=== PATIENT | female | born 1960 | race Hispanic/Latino ===

== ENCOUNTER 2019-05-09 09:46 | Observation (INO) | payer OTHER ==
--- OUTSIDE RECORDS SUMMARY | 2019-05-09 10:07 | XMS REPORT | Summary of Care ---
:1960 Author Organization [facility] Outpatient Imaging [place] Address [id number] [place] [address]- Encounter HQ Encntr_alias(FIN) [id number] Date(s): 03/02/16 - 03/02/16 [facility] Outpatient Imaging [address] Discharge Disposition: Home Attending Physician: Vernon Kimball MD Vital Signs No data available for this section Problem List No data available for this section Allergies, Adverse Reactions, Alerts No data available for this section Medications No data available for this section Results No data available for this section Immunizations No data available for this section Procedures No data available for this section Social History No data available for this section Assessment and Plan No data available for this section
--- OUTSIDE RECORDS SUMMARY | 2019-05-09 10:07 | XMS REPORT | Clinical Summary ---
:1960 Author Organization [facility] Address [address] [place] [address] Care Team Providers Name Role Phone Yousuf Renee MD Primary Care Provider Allergies No Known Allergies Medications Medication Sig Dispensed Refills Start Date End Date Status levothyroxine (SYNTHROID, Take 150 mcg by 0 Active LEVOXYL) 150 mcg tablet mouth daily. hydroxychloroquine Take 200 mg by 0 Active (PLAQUENIL) 200 mg tablet mouth 2 (two) times a day. topiramate (TOPAMAX) 50 Take 50 mg by 0 Active MG tablet mouth 2 (two) times a day. olmesartan (BENICAR) 40 Take 40 mg by 0 08/23/2017 Active MG tablet mouth once daily. carvedilol (COREG) 6.25 Take 6.25 mg by 0 Active MG tablet mouth daily. etodolac (LODINE) 500 MG Take 500 mg by 0 Active tablet mouth daily. leflunomide (ARAVA) 20 MG Take 20 mg by 0 09/01/2017 Active tablet mouth once daily. INFLIXIMAB (REMICADE IV) Infuse into a 0 Active venous catheter every 28 days. Active Problems Problem Noted Date Lumbar adjacent segment disease with spondylolisthesis 10/27/2017 Family History Medical History Relation Name Comments Cancer Father Heart disease Father Relation Name Status Comments Father bleeding disorder Mother lung disease Social History Tobacco Use Types Packs/Day Years Used Date Never Smoker Smokeless Tobacco: Never Used Alcohol Use Drinks/Week oz/Week Comments Yes 1 per month Sex Assigned at Date Recorded Not on file Job Start Date Occupation Industry Not on file Not on file Not on file Travel History Travel Start Travel End No recent travel history available. Last Filed Vital Signs Not on file Plan of Treatment Health Maintenance Due Date Last Done Comments BREAST CANCER SCREENING 2008 COLONOSCOPY SCREENING 2008 SHINGLES VACCINES (#1) 2008 INFLUENZA VACCINE 06/08/2019 Implants Implanted Type Area Subgrade Tester Device Shelf Model / Serial Identifier Expiration / Lot Date Chip Canc Allograft Leader Crshd 30cc 0.1-4mm - [id number] Human Posterio MUSCULOSKELETAL 05/14/2020 [id number] / Implanted: Qty: 1 on 10/27/2017 by Lawrence Alfonso MD Tissue r: Spine TRANSPLANT / Implants Lumbar F[employer]ATION [id number] Concelltrate 100 10.0cc - [id number] Human N/A: N/A 05/03/2022 [id number] / Implanted: Qty: 1 on 10/27/2017 by Lawrence Alfonso MD Tissue / Implants Concelltrate 100 5.0cc - [id number] Human Posterio 01/18/2022 [id number] / Implanted: Qty: 1 on 10/27/2017 by Lawrence Alfonso MD Tissue r: Spine / Implants Lumbar [id number] Niya 3 Ti Pa Screw Leticia 5.5 X 30 Mm - [id number] Posterio [employer] [id number] / Implanted: Qty: 1 on 10/27/2017 by Lawrence Alfonso MD IMPLANT r: Spine / DEVICES Lumbar VENDOR LOT NA Screw Spinal Plyaxl 6.5x45mm Niya Iii - [id number] Spinal Posterio [employer] [id number] / Implanted: Qty: 2 on 10/27/2017 by Lawrence Alfonso MD Implants r: Spine / Lumbar VENDOR LOT NA Ivan Spinal Rads 6x45mm Niya Iii - [id number] Spinal Posterio [employer] [id number] / Implanted: Qty: 2 on 10/27/2017 by Lawrence Alfonso MD Implants r: Spine / Lumbar VENDOR LOT NA Freedom Lmbr Thorc Niya 3 - [id number] Spinal Posterio [employer] [id number] / Implanted: Qty: 4 on 10/27/2017 by Lawrence Alfonso MD Implants r: Spine / Lumbar VENDOR LOT NA Screw Plyaxl Lmbr Thor 5.5x40mm Ns Niya 3 - [id number] Spinal Posterio [employer] [id number] / Implanted: Qty: 1 on 10/27/2017 by Lawrence Alfonso MD Implants r: Spine / Lumbar VENDOR LOT NA Connector Spinal Cross Mul-Ax Niya 3 43-54mm - [id number] Spinal Posterio [employer] [id number] / Implanted: 10/27/2017 (Quantity not on file) Implants r: Spine / Lumbar VENDOR LOT NA Matrix Hmstc Floseal 5ml W/ Humn F2 - [id number] Surgical N/A: N/A HAYNES 01/11/2019 [id number] / Implanted: Qty: 1 on 10/27/2017 by Lawrence Alfonso MD Implants; [employer] [facility] / Expanders; Extenders; Surgical Wires Results Not on fileafter 05/08/2018 ([place]) [place] [address] Advance Directives Patient has advance care planning documents, and code status on file. For more information, please contact:Lionel Lainez[address] [place] [address] Code Status Date Activated Date Inactivated Comments Full Code 10/27/2017 8:44 PM 10/30/2017 9:02 PM Code Status decision reached by: Patient
--- OUTSIDE RECORDS SUMMARY | 2019-05-09 10:07 | XMS REPORT | Summary of Care ---
:1960 Author Organization [facility] [place] Address [address] [facility] [address] [place] [address] Encounter HQ Rene(FIN) [id number] Date(s): 04/28/19 - 04/28/19 [facility] [address] [facility] [address] [place] [address]- [phone] Discharge Disposition: Home or Self Care Attending Physician: Evy Leach MD Vital Signs Most recent to oldest [Reference Range]: 1 Height 157.48 cm (04/28/19 9:02 AM) Blood Pressure [90-140/60-90 mmHg] 160/107 mmHg *HI* (04/28/19 9:02 AM) Peripheral Pulse Rate [60-100 bpm] 54 bpm *LOW* (04/28/19 9:02 AM) Weight 98.636 kg (04/28/19 9:02 AM) Body Mass Index 39.77 m2 (04/28/19 9:02 AM) Problem List Condition Effective Dates Status Health Status Informant Cardiac angina(Confirmed) Active Diastolic CHF(Confirmed) Active Family history of premature Active CAD(Confirmed) Uncontrolled hypertension(Confirmed) Active Morbid obesity(Confirmed) Active Preop cardiovascular exam(Confirmed) Active Allergies, Adverse Reactions, Alerts No Known Allergies Medications amLODIPine 5 mg oral tablet 5 mg=1 tab, PO, BID, # 180 tab, 4 Refill(s), Pharmacy: [facility]/pharmacy #[id number] Start Date: 04/28/19 Stop Date: 07/21/20 Status: OrderedamLODIPine 5 mg oral tablet 5 mg=1 tab, PO, Daily, 0 Refill(s) Start Date: 04/28/19 Stop Date: 04/28/19 Status: Discontinuedcarvedilol 12.5 mg oral tablet See Instructions, 1 tab Po qd, 0 Refill(s) Start Date: 04/28/19 Stop Date: 04/28/19 Status: Discontinuedcarvedilol 12.5 mg oral tablet 12.5 mg=1 tab, PO, BID, # 180 tab, 4 Refill(s), Pharmacy: [facility]/pharmacy #[id number] Start Date: 04/28/19 Stop Date: 07/21/20 Status: Orderedcarvedilol 6.25 mg oral tablet See Instructions, 1 tab PO, 0 Refill(s) Start Date: 04/28/19 Stop Date: 04/28/19 Status: Discontinuedlevothyroxine 150 mcg (0.15 mg) oral tablet 150 microgram=1 tab, PO, Daily, 0 Refill(s) Start Date: 04/28/19 Status: Orderedlosartan 100 mg oral tablet 100 mg=1 tab, PO, Daily, 0 Refill(s) Start Date: 04/28/19 Stop Date: 04/28/19 Status: Discontinuedolmesartan 40 mg oral tablet 40 mg=1 tab, PO, Daily, # 90 tab, 4 Refill(s), Pharmacy: [facility]/pharmacy #[id number] Start Date: 04/28/19 Stop Date: 07/21/20 Status: Orderedolmesartan 40 mg oral tablet 40 mg=1 tab, PO, Daily, 0 Refill(s) Start Date: 04/28/19 Stop Date: 04/28/19 Status: DiscontinuedRemicade 5 mg/kg, IV, 0 Refill(s) Start Date: 04/28/19 Status: Orderedtopiramate 50 mg oral tablet 50 mg=1 tab, PO, BID, # 60 tab, 1 Refill(s) Start Date: 04/28/19 Stop Date: 05/28/19 Status: Ordered Results No data available for this section Immunizations No data available for this section Procedures Procedure Date Related Diagnosis Body Site Status Hysterectomy Completed Social History Social History Type Response Smoking Status Never smoker; Exposure to Tobacco Smoke None; Cigarette Smoking Last 365 Days No; Reg Smoking Cessation Counseling No entered on: 04/28/19 Assessment and Plan No data available for this section
--- OUTSIDE RECORDS SUMMARY | 2019-05-09 10:07 | XMS REPORT | Summary of Care ---
:1960 Author Name DEMETRA STANLEY N.P. 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) Status: Active Malnutrition (263.9, E46) Status: Active Fatty liver (571.8, K76.0) Status: Active Medications Name Dates Details Medications not documented Allergies and Adverse Reactions Name Dates Details Allergy history not documented Status: Past Medical History Name Dates Details History of Malabsorption due to intolerance, not elsewhere classified (579.8, K90.49) Status: Resolved History of malnutrition (V12.1, Z86.39) Status: Resolved Procedures Procedure Dates Details [[facility]] VITAMIN A (RETINOL) Date: 06-Mar-2019 [[facility]] VITAMIN E (TOCOPHEROL) Date: 06-Mar-2019 Immunization Name Dates Details Immunizations not documented Social History Name Dates Details Unknown if ever smoked Vital Signs Date Test Result Details No Known Vitals to report Results Date Description Value Details 13-Feb-20199:33 US Liver 15258 Liver US SEE NOTES Comments: LIVER ULTRASOUND INDICATION: - K76.0 Fatty (change of) liver, not elsewhere classifiedTECHNIQUE: Grayscale and limited doppler images of the liver were obtained andrepresentative images were submit princess for interpretation.COMPARISON: noneFINDINGS:Liver: the liver measures 15 cm in length (normal: 13-17 cm). Echogenicity isincreased. No surface nodularity.Portal and hepatic veins are patent with nor mal directions of flow.Biliary: No gallstones, gallbladder wall thickening, or sonographic Ferguson'ssign. There is no biliary duct dilation. Mid common bile duct measures 4 mm indiameter.Pancreas: Promi nent head and appears echogenic. No focal lesion. However,certain portions are obscured by overlying bowel gas and unable to beevaluated.Vascular : Visualized portions of the IVC are patent. No obvious a neurysmaldilatation of the aorta.IMPRESSION:Prominent pancreatic head which appears echogenic. Findings maybe due to fattyinfiltration or inflammation. Recommend correlation with lipase levels. Alsoco nsider further evaluation with pancreatic protocol MR or CT.Hepatic echogenicity suggests fatty infiltration and/or chronic hepatocellulardisease.-- Read by: Jane Do MDDictated Date/time: 09:59Electronically Signed by: Jane Do MD 02/13/1910:04FINAL REPORT :59 GI Esophagus barium swallow 15320 Esophagus barium swallow SEE NOTES Comments: EXAM: Upper GI series w KUB DX , Barium swallow DXDATE: 02/13/2019 9:58 CDT.INDICATION: Nausea and reflux.COMPARISON: None available.TECHNIQUE: Upper GI was performed using double contrast technique orally .FLUOROSCOPY:Time: 0.4 min.Exposures: 0.FINDINGS:Preliminary radiograph: Posterior spinal fixation hardware projects over thelower lumbar spine. A moderate amount stool is incidentally noted.Swallowing: Normal. No penetration or aspiration was seen.Esophagus:Motility: Normal. There was normal passage of a barium-coated tablet beyond thegastroesophageal junction.Anatomy: No filling defects, mucosal irr egularities, obstructions or extrinsiccompressions identified.Hiatal hernia: None.Gastroesophageal reflux: Unprovoked gastroesophageal reflux extended as farproximal as the level of the karen.Stomach: Normal.Duodenum: Normal.IMPRESSION:Unprovoked gastroesophageal reflux is moderate in extent.--Read by: Devon Vo MDDictated Date/time: 06/26 15:46Electronically Signed by: Milad Vo MD 02/13/1915:49FINAL REPORT :58 GI Stomach UGI (barium) with KUB 33829 Stomach UGI (barium) with SEE NOTES Comments: EXAM: Upper GI series w KUB DX, Barium swallow DXDATE: 02/13/2019 9:58 CDT.INDICATION: Nausea and reflux.COMPARISON: None available.TECHNIQUE: Upper GI was performed using double contrast technique orally KUB .FLUOROSCOPY:Time: 0.4 min.Exposures: 0.FINDINGS:Preliminary radiograph: Posterior spinal fixation hardware projects over thelower lumbar spine. A moderate amount stool is incidentally noted.Swallowing: Normal. No penetration or aspiration was seen.Esophagus:Motility: Normal. There was normal passage of a barium-coated tablet beyond thegastroesophageal junction.Anatomy: No filling defects, mucosal irr egularities, obstructions or extrinsiccompressions identified.Hiatal hernia: None.Gastroesophageal reflux: Unprovoked gastroesophageal reflux extended as farproximal as the level of the karen.Stomach: Normal.Duodenum: Normal.IMPRESSION:Unprovoked gastroesophageal reflux is moderate in extent.--Read by: Devon Voictated Date/time: 06/26 15:46Electronically Signed by: Milad Vo MD 02/13/1915:49FINAL REPORT [[facility]] PTH, INTACT (WITHOUT CALCIUM) Parathyroid Hormone Intact 47.4 pg/ml Range: 18.4-80.1 [[facility]] AMYLASE Amylase Level 51 u/l Range: 25-115 [[facility]] FOLATE, SERUM Folate Level 9.7 ng/ml Range: >=3.0 [[facility]] LIPID PANEL LDL 66 mg/dl Range: <=99 VLDL 30 Chol 161 mg/dl Range: <=199 Trig 148 mg/dl Range: <=149 HDL Cholesterol 65 mg/dl Range: >=61 CHD Risk 2.48 (Below low threshold) Range: 3.90-5.80 [[facility]] IRON AND TOTAL IRON BINDING CAPACITY Iron 115 ug/dL Range: 30-160 % Satur Fe 30 % Range: 12-57 TIBC 385 ug/dL Range: 228-428 UIBC 270 ug/dL Range: 110-370 [[facility]] LIPASE Lipase Level 305 u/l Range: 73-393 [[facility]] TSH, 3RD GENERATION TSH 4.360 {uIU/ml} (Above high threshold) Range: 0.360-3.740 [[facility]] VITAMIN B12 Vitamin B12 Level 318 pg/ml Range: 254-1320 [[facility]] HEMOGLOBIN A1c Hemoglobin A1c 5.9 % (Above high threshold) Range: <=5.6 [[facility]] VITAMIN D, 25-HYDROXY, LC/MS/MS Vitamin D, 25-OH, 18.5 ng/ml (Below low Range: 30.0-100.0 Total threshold) Comments: Reference range is based on recommendations in the [employer]ocrineSociety Clinical Practice Guideline (J Clin Endocrinol Lmxwd0618;96 :9107-7860) [H] Vit A Vitamin A Level 45.6 ug/dL Range: 22.0-69.5 Comments: Reference intervals for vitamin A determined from [facility] studies. Individuals with vitamin A less than 20ug/dL are considered vitamin A deficient and those withserum concentrations less than 10 ug/dL are consideredseverely deficient.This test was developed and its performance characteristicsdetermined by [employer]. It has not been cleared orapproved by the Food and Drug Administration.Performed At: [facility] [id number] Smith MD Ph:[phone] [H] Vitamin E Lvl Alpha-Tocopherol 8.2 mg/L (Below low Range: 9.0-29.0 threshold) Comments: This test was developed and its performance characteristicsdetermined by [employer]. It has not been cleared orapproved by the Food and Drug Administration. Gamma-Tocopherol 1.2 mg/L Range: 0.5-4.9 Comments: This test was developed and its performance characteristicsdetermined by [facility]. It has not been cleared orapproved by the Food and Drug Administration.Reference intervals for alpha and gamma-tocophero ldetermined from National Health and Nutrition ExaminationSurvey, 2004- 2005. Individuals with alpha-tocopherol levelsless than 5.0 mg/L are considered vitamin E deficient.Performed At: [facility] [id number] [place], [place] [id number] Smith MD Ph: [phone] 14-Uag-[id number]:00 [[facility]] VITAMIN B1, WHOLE BLOOD Vitamin B1 Level 113.8 nmol/L Range: 66.5-200.0 Comments: This test was developed and its performance characteristicsdetermined by [facility]. It has not been cleared orapproved by the Food and Drug Administration.Performed At: [address] [id number] Sanjai MD Ph:[phone] Plan of Care Name Dates Details Planned Observations Planned Goals not documented Planned Encounters Appointment; DEMETRA STANLEY NP On: 27-Mar-2019 13:15 Instructions Name Dates Details Instructions not documented Encounters Appointment; LISA CONCEPCION M.D. On: 27-Jan-2019 10:30 Encounter Diagnosis: Problem not documented Appointment; DEMETRA STANLEY NP On: 06-Mar-2019 13:00 Encounter Diagnosis: Problem not documented
--- OUTSIDE RECORDS SUMMARY | 2019-05-09 10:07 | XMS REPORT | Summary of Care ---
:1960 Author Organization [facility] Outpatient Imaging [place] Address [id number] [place] [address]- Encounter HQ Encntr_alias(FIN) [id number] Date(s): 02/13/19 - 02/13/19 [facility] Outpatient Imaging [address] [address]- Discharge Disposition: Home or Self Care Attending Physician: Ramone Michel MD Referring Physician: Ramone Michel MD Vital Signs No data available for [...]
--- OUTSIDE RECORDS SUMMARY | 2019-05-09 10:07 | XMS REPORT | Continuity of Care Document ---
:1960 Author Organization [employer] Care Team Providers Name Role Phone [employer] Unavailable Unavailable Problems Problem Status Onset Classification Date Comments Source Date Reported M54.5 - LOW BACK Active 09/03/20 [facility] PAIN [facility] [place], [facility] [place] M06.09 - Active 03/02/20 [facility] RHEUMATOID [facility] [place] ARTHRITIS W/O RHEUM Cardiac angina Active Problem 04/30/2019 [facility] Diastolic CHF Active Problem 04/30/2019 [facility] Family history of Active Problem 04/30/2019 Medical premature CAD Group Uncontrolled Active Problem 04/30/2019 Medical hypertension Group Morbid obesity Active Problem 04/30/2019 Medical Group Preop Active Problem 04/30/2019 Medical cardiovascular Group exam Medications Medication Details Route Status Patient Ordering Order Source Instructions Provider Date amLODIPine 5 mg 5 mg=1 Active oral tablet tab, PO, 019 [facility] BID, # 180 Group tab, 4 Refill(s), [facility]acy: [id number] carvedilol 12.5 12.5 mg=1 Active MH mg oral tablet tab, PO, 019 Medical BID, # 180 Group tab, 4 Refill(s), [facility]: [id number] olmesartan 40 mg 40 mg=1 Active oral tablet tab, PO, 019 Medical Daily, # Group 90 tab, 4 Refill(s), Pharmacy: [id number] Remicade 5 mg/kg, Active IV, 0 019 Medical Refill(s) Group olmesartan 40 mg 40 mg=1 Inactive oral tablet tab, PO, 019 Medical Daily, 0 Group Refill(s) carvedilol 12.5 See Inactive mg oral tablet Instructio 019 Medical ns, 1 tab Group Po qd, 0 Refill(s) losartan 100 mg 100 mg=1 Inactive oral tablet tab, PO, 019 Medical Daily, 0 Group Refill(s) amLODIPine 5 mg 5 mg=1 Inactive oral tablet tab, PO, 019 Medical Daily, 0 Group Refill(s) levothyroxine 150 Active 150 mcg (0.15 microgram= 019 Medical mg) oral tablet 1 tab, PO, Group Daily, 0 Refill(s) carvedilol 6.25 See Inactive MH mg oral tablet Instructio 019 Medical ns, 1 tab Group PO, 0 Refill(s) topiramate 50 mg 50 mg=1 Active oral tablet tab, PO, 019 Medical BID, # 60 Group tab, 1 Refill(s) Allergies, Adverse Reactions, Alerts No Known Medication Allergies Immunizations No Data Provided for This Section Results No Data Provided for This Section Pathology Reports No Data Provided for This Section Diagnostic Reports Report Value Date Source Barium swallow DX EXAM: Upper GI series w KUB DX, Barium swallow DX 2018 [facility] DATE: 02/13/2019 9:58 CDT. INDICATION: Nausea and reflux. COMPARISON: None available. TECHNIQUE: Upper GI was performed using double contrast technique orally. FLUOROSCOPY: Time: 0.4 min. Exposures: 0. FINDINGS: Preliminary radiograph: Posterior spinal fixation hardware projects over the lower lumbar spine. A moderate amount stool is incidentally noted. Swallowing: Normal. No penetration or aspiration was seen. Esophagus: Motility: Normal. There was normal passage of a barium-coated tablet beyond the gastroesophageal junction. Anatomy: No filling defects, mucosal irregularities, obstructions or extrinsic compressions identified. Hiatal hernia: None. Gastroesophageal reflux: Unprovoked gastroesophageal reflux extended as far proximal as the level of the karen. Stomach: Normal. Duodenum: Normal. IMPRESSION: Unprovoked gastroesophageal reflux is moderate in extent. Upper GI series w EXAM: Upper GI series w KUB DX, Barium swallow DX 2018 [facility] [place] KUB DX DATE: 02/13/2019 9:58 CDT. INDICATION: Nausea and reflux. COMPARISON: None available. TECHNIQUE: Upper GI was performed using double contrast technique orally. FLUOROSCOPY: Time: 0.4 min. Exposures: 0. FINDINGS: Preliminary radiograph: Posterior spinal fixation hardware projects over the lower lumbar spine. A moderate amount stool is incidentally noted. Swallowing: Normal. No penetration or aspiration was seen. Esophagus: Motility: Normal. There was normal passage of a barium-coated tablet beyond the gastroesophageal junction. Anatomy: No filling defects, mucosal irregularities, obstructions or extrinsic compressions identified. Hiatal hernia: None. Gastroesophageal reflux: Unprovoked gastroesophageal reflux extended as far proximal as the level of the karen. Stomach: Normal. Duodenum: Normal. IMPRESSION: Unprovoked gastroesophageal reflux is moderate in extent. Liver US LIVER ULTRASOUND 02/13/2019 [facility] INDICATION: - K76.0 Fatty (change of) liver, not elsewhere classified TECHNIQUE: Grayscale and limited doppler images of the liver were obtained and client account representative images were submitted for interpretation. COMPARISON: none FINDINGS: Liver: the liver measures 15 cm in length (normal: 13-17 cm). Echogenicity is increased. No surface nodularity. Portal and hepatic veins are patent with normal directions of flow. Biliary: No gallstones, gallbladder wall thickening, or sonographic Ferguson's sign. There is no biliary duct dilation. Mid common bile duct measures 4 mm in diameter. Pancreas: Prominent head and appears echogenic. No focal lesion. However, certain portions are obscured by overlying bowel gas and unable to be evaluated. Vascular: Visualized portions of the IVC are patent. No obvious aneurysmal dilatation of the aorta. IMPRESSION: Prominent pancreatic head which appears echogenic. Findings maybe due to fatty infiltration or inflammation. Recommend correlation with lipase levels. Also consider further evaluation with pancreatic protocol MR or CT. Hepatic echogenicity suggests fatty infiltration and/or chronic hepatocellular disease. Ankle 3 views DX Examination: Ankle 3 views DX 03/02/2016 [facility] [employer] Provided History: M06.09 Rheumatoid arthritis without rheumatoid factor, multiple sites IMPRESSION: No acute fracture or subluxation DISCUSSION: 3 views right ankle demonstrate mild soft tissue swelling but no evidence of an acute fracture or subluxation. The osseous elements are intact. Knee 3 views DX Examination: Knee 3 views DX 03/02/2016 [facility] Provided History: M06.09 Rheumatoid arthritis without rheumatoid factor, multiple sites IMPRESSION: 1. No acute fracture or effusion 2. Minimal degenerative changes. DISCUSSION: 3 views right knee demonstrate no evidence of an acute fracture or subluxation. The patella appears intact with minimal spurring along the superior margin. The tibial spines show minimal degenerative spurring. Consultation Notes No Data Provided for This Section Discharge Summaries No Data Provided for This Section History and Physicals No Data Provided for This Section Vital Signs Vital Sign Value Date Comments Source Height 157.48 cm 04/28/2019 [facility] BMI Calculated 39.77 04/28/2019 [facility] Weight 98.636 04/28/2019 [facility] Group Heart Rate 54 04/28/2019 [facility] Systolic (mm Hg) 160 04/28/2019 [facility] Diastolic (mm Hg) 107 04/28/2019 [facility] Group Encounters Location Location Encounter Encounter Reason Attending ADM DC Status Source Details Type Number For Provider Date Date Visit [facility] Outpt Diag [id number] [place] 03/02 03/03 [facility] [place] [place] [facility] Outpt Diag [id number] Kulvinder 02/13 02/14 [facility] [place] Outpatient [id number] Maj[place] 04/28 [facility] [place] [facility] Outpatient [id number] Majid 04/28 04/29 [facility] [place] [facility] Outpatient [id number] Majid 06/05 [facility] [place] Procedures Procedure Code Date Perfomer Comments Source Hysterectomy [id number] [facility] Assessment and Plan No Data Provided for This Section Plan of Care No Data Provided for This Section Social History Social History Date Source Social History TypeResponse 04/28/2019 [facility] Group Smoking Status Never smoker; Exposure to Tobacco Smoke None; Cigarette Smoking Last 365 Days No; Reg Smoking Cessation Counseling No entered on: 04/28/19 No data available for this 02/14/2019 [facility] [place] section Family History No Data Provided for This Section Advance Directives No Data Provided for This Section Functional Status No Data Provided for This Section
[2019-05-09 10:48] LABS: Absolute Lymphocytes (CBC) 1.4 K/uL (0.7-4.9); Basophils % 0.6 % (0-1.3); Eosinophils % 1.9 % (0-4.4); Lymphocytes % 12.9 % (15.3-44.8); MPV 10.2 fL (7.6-11.3); Monocytes % 8.1 % (3.3-12.3); RBC Red Blood Cell Count 5.05 M/uL (3.86-4.86)
[2019-05-09 10:49] LABS: Protime INR 0.96
--- NOTE | 2019-05-09 10:50 | RAD REPORT ---
EXAM DESCRIPTION: RAD - Chest Single View - 05/09/2019 10:38 am CLINICAL HISTORY: CHEST PAIN Chest pain. COMPARISON: Chest Pa And Lat (2 Views) dated 10/01/2018; Chest Pa And Lat (2 Views) dated 10/18/2017 ; CHEST PA AND LAT 2 VIEW dated 11/17/2012; CHEST SINGLE VIEW dated 11/16/2012 FINDINGS: Portable technique limits examination quality. The lungs are grossly clear. The heart is normal in size. No displaced fractures. IMPRESSION: No acute intrathoracic process suspected.
--- NOTE | 2019-05-09 10:55 | EKG ---
Test Date: 2019-05-09 Test Time: 09:58:09 [facility] [employer] Administrator: EUGENE MEASUREMENT RESULTS: Intervals: Rate: 63 AK: 160 QRSD: 88 QT: 390 QTc: 399 [place]: P: 40 AK: 160 QRS: 6 T: 50 INTERPRETIVE STATEMENTS: Normal sinus rhythm Cannot rule out Anterior infarct, age undetermined Abnormal ECG Compared to ECG 10/18/2017 11:21:02 Myocardial infarct finding now present T-wave abnormality no longer present Electronically Signed On 05-09-19 10:54:27 CDT by Jesus Mendenhall
[2019-05-09] MEDS ORDERED: ASPIRIN 81 MG CHEWABLE TABLET ONE (11:05)
[2019-05-09 11:12] LABS: ALT/SGPT 27 U/L (12-78); AST/SGOT 16 U/L (15-37); BUN Blood Urea Nitrogen 17 mg/dL (7-18); Bicarbonate 25 mmol/L (21-32); Bilirubin Direct 0.3 mg/dL (0-0.2); Bilirubin Total 1.6 mg/dL (0.2-1.0); Glucose Level 121 mg/dL (74-106); NT PRO-BNP 39 pg/mL (<125); Potassium 3.9 mmol/L (3.5-5.1); Protein, Total 7.5 g/dL (6.4-8.2); Sodium Level 140 mmol/L (136-145); Troponin (Emerg Dept Use Only) < 0.02 ng/mL (0.0-0.045)
[2019-05-09 11:16] LABS: Alkaline Phosphatase ND U/L (45-117)
--- NOTE | 2019-05-09 12:32 | RAD REPORT ---
EXAM DESCRIPTION: US - Abdomen Exam Limited - 05/09/2019 11:59 am CLINICAL HISTORY: epigastric discomfort. vomiting COMPARISON: ABDOMINAL EXAM LIMITED dated 11/18/2012 FINDINGS: The gallbladder demonstrates no gallstones. No pericholecystic fluid or gallbladder wall t hickening. The common bile duct is normal measuring 3 mm. The liver demonstrates no findings of intrahepatic biliary dilatation. IMPRESSION: Unremarkable examination.
--- NOTE | 2019-05-09 12:54 | EDPHYS ---
Physician Documentation [facility] Name: Loren Christianson Age: 58 yrs Sex: Female : 1960 Arrival Date: 05/09/2019 Time: 09:48 Bed 23 Private MD: Yousuf Renee V ED Physician Estiven Todd HPI: 05/09 12:42 This 58 yrs old Female presents to ER via Ambulatory with complaints of Chest wa Pain, Shortness Of Breath. 12:42 The patient or guardian reports chest pain that is located primarily in the substernal wa area. Onset: just prior to arrival. The pain does not radiate. Associated signs and symptoms: Pertinent positives: diaphoresis, dizziness, lightheadedness, nausea, shortness of breath, vomiting, Pertinent negatives: abdominal pain. The chest pain is described as a pressure. Duration: The patient or guardian reports a single episode, that lasted 10 minute(s). Modifying factors: The symptoms are alleviated by nothing. the symptoms are aggravated by nothing. Severity of pain: At its worst the pain was moderate in the emergency department the pain has improved markedly. The patient has not experienced similar symptoms in the past. The patient has not recently seen a physician. states was chatting with her sister and became acutely SOB, chest tightness, dizziness, clammy, nausea with 2 episodes of vomiting. states lasted until EMS arrived but at the time felt better so called them off. denies symptoms at his time except feels extremely tired. denies similar symptoms int he past. Historical: - Allergies: 10:03 No Known Allergies; aj - Home Meds: 10:03 carvedilol 12.5 mg oral tab 1 tab 2 times per day [Active]; vitammin D 2 50,000 unit aj capsule Twice per week [Active]; etodolac 500 mg Oral Tb24 1 tab once daily [Active]; losartan 100 mg oral tab 1 tab once daily [Active]; topiramate 50 mg oral CSpX 2 caps once daily [Active]; levothyroxine 150 mcg tab 1 tab once daily [Active]; olmesartan medoxomil 40 mg daily [Active]; hydroxychloroquine 200 mg oral tab 2 tabs once daily [Active]; amlodipine 5 mg tab 1 tab once daily [Active]; - PMHx: 10:03 Hypertension; Hypothyroidism; aj 10:03 Arthritis; aj - Immunization history:: Adult Immunizations up to date. - Social history:: Smoking status: Patient/guardian denies using tobacco. - Ebola Screening: : Patient negative for fever greater than or equal to 101.5 degrees Fahrenheit, and additional compatible Ebola Virus Disease symptoms Patient denies exposure to infectious person Patient denies travel to an Ebola-affected area in the 21 days before illness onset No symptoms or risks identified at this time. - Family history:: not pertinent. ROS: 12:45 Constitutional: Negative for fever, chills, and weight loss, Eyes: Negative for injury, wa pain, redness, and discharge, ENT: Negative for injury, pain, and discharge, Neck: Negative for injury, pain, and swelling, Abdomen/GI: Negative for abdominal pain, nausea, vomiting, diarrhea, and constipation, Back: Negative for injury and pain, : Negative for injury, bleeding, discharge, and swelling, MS/Extremity: Negative for injury and deformity, Skin: Negative for injury, rash, and discoloration, Neuro: Negative for headache, weakness, numbness, tingling, and seizure, Psych: Negative for depression, anxiety, suicide ideation, homicidal ideation, and hallucinations. 12:45 Cardiovascular: Positive for chest pain, Negative for edema, orthopnea, palpitations, paroxysmal nocturnal dyspnea. 12:45 Respiratory: Positive for shortness of breath, Negative for cough, hemoptysis, orthopnea. 12:45 All other systems are negative. Exam: 12:46 Constitutional: This is a well developed, well nourished patient who is awake, alert, wa and in no acute distress. Head/Face: Normocephalic, atraumatic. Eyes: Pupils equal round and reactive to light, extra-ocular motions intact. Lids and lashes normal. Conjunctiva and sclera are non-icteric and not injected. Cornea within normal limits. Periorbital areas with no swelling, redness, or edema. ENT: Nares patent. No nasal discharge, no septal abnormalities noted. Tympanic membranes are normal and external auditory canals are clear. Oropharynx with no redness, swelling, or masses, exudates, or evidence of obstruction, uvula midline. Mucous membranes moist. Neck: Trachea midline, no thyromegaly or masses palpated, and no cervical lymphadenopathy. Supple, full range of motion without nuchal rigidity, or vertebral point tenderness. No Meningismus. Chest/axilla: Normal chest wall appearance and motion. Nontender with no deformity. No lesions are appreciated. Abdomen/GI: Soft, non-tender, with normal bowel sounds. No distension or tympany. No guarding or rebound. No evidence of tenderness throughout. Back: No spinal tenderness. No costovertebral tenderness. Full range of motion. Skin: Warm, dry with normal turgor. Normal color with no rashes, no lesions, and no evidence of cellulitis. MS/ Extremity: Pulses equal, no cyanosis. Neurovascular intact. Full, normal range of motion. Neuro: Awake and alert, GCS 15, oriented to person, place, time, and situation. Cranial nerves II-XII grossly intact. Motor strength 5/5 in all extremities. Sensory grossly intact. Cerebellar exam normal. Normal gait. Psych: Awake, alert, with orientation to person, place and time. Behavior, mood, and affect are within normal limits. 12:46 Cardiovascular: Rate: normal, Rhythm: regular, Pulses: no pulse deficits are appreciated, Heart sounds: normal, Edema: is not appreciated, JVD: is not appreciated. 12:46 Respiratory: the patient does not display signs of respiratory distress, Respirations: normal, Breath sounds: are clear throughout, Respiratory rate: nml Vital Signs: 10:09 BP 122 / 77; Pulse 64; Resp 19; Temp 98.4; Pulse Ox 94% on R/A; Weight 90.72 kg; Height aj 5 ft. 2 in. (157.48 cm); 11:28 BP 120 / 80; Pulse 63; Resp 16; Pulse Ox 96% on R/A; aj 12:35 BP 116 / 79; Pulse 63; Resp 19; Pulse Ox 99% on R/A; aj 13:55 BP 154 / 90; Pulse 62; Resp 16; Pulse Ox 100% on R/A; aj 14:49 BP 126 / 73; Pulse 64; Resp 17; Pulse Ox 97% on R/A; aj 10:09 Body Mass Index 36.58 (90.72 kg, 157.48 cm) aj MDM: 09:55 Patient medically screened. wa 12:47 Differential diagnosis: symptoms very concerning for angina. needs r/o ACS. will work wa up. admit and have eval by cardiology. ASA. consider lovenox. Data reviewed: vital signs, nurses notes, lab test result(s), EKG, radiologic studies. Test interpretation: by ED physician or midlevel provider: EKG: HR 63. sinus. nml axis. low voltage. diffuse ST-T changes, non-specific. 12:50 Test interpretation: by ED physician or midlevel provider: labs noted for T. bili of wa 1.6. initial troponin nml. CXR nml. RUQ US: nml gallbladder. Special discussion: 1300 hrs: no chest pain at this time. will give a dose of lovenox. will admit to Dr. renee. consult cardiology Dr. Mendenhall. 05/09 10:13 Order name: Basic Metabolic Panel; Complete Time: 11:35 05/09 10:13 Order name: CBC with Diff; Complete Time: 11:36 05/09 10:13 Order name: LFT's; Complete Time: 11:36 05/09 10:13 Order name: Magnesium; Complete Time: 11:36 05/09 10:13 Order name: NT PRO-BNP; Complete Time: 11:36 05/09 10:13 Order name: PT-INR; Complete Time: 11:36 05/09 10:13 Order name: Troponin (emerg Dept Use Only); Complete Time: 11:36 05/09 10:13 Order name: XRAY Chest (1 view); Complete Time: 10:52 05/09 11:37 Order name: US Abdomen Limited; Complete Time: 12:35 [place] 05/09 12:54 Order name: Troponin (emerg Dept Use Only) 05/09 13:02 Order name: Troponin I [facility] 05/09 13:02 Order name: Troponin I [facility] 05/09 10:13 Order name: EKG; Complete Time: 10:15 05/09 10:13 Order name: Cardiac monitoring; Complete Time: 10:13 05/09 10:13 Order name: EKG - Nurse/Tech; Complete Time: 10:13 05/09 10:13 Order name: IV Saline Lock; Complete Time: 10:47 05/09 10:13 Order name: Labs collected and sent; Complete Time: 10:47 07/02 10:13 Order name: O2 Per Protocol; Complete Time: 10:13 05/09 10:13 Order name: O2 Sat Monitoring; Complete Time: 10:13 05/09 13:02 Order name: CONS Physician Consult [facility] 05/09 13:02 Order name: Consistent Carb (ADA) [address] [facility] 05/09 13:02 Order name: EKG Electrocardiogram [facility] 05/09 13:02 Order name: EKG Electrocardiogram [facility] 05/09 13:50 Order name: EKG - Nurse/Tech: repeat; Complete Time: 14:15 mg2 Administered Medications: 10:50 Drug: Aspirin Chewable Tablet 324 mg Route: PO; aj 11:28 Follow up: Response: No adverse reaction aj 12:56 Drug: Lovenox 90 mg Route: Sub-Q; Site: right upper abdomen; aj 13:50 Follow up: Response: No adverse reaction mg2 13:55 Drug: Zofran 4 mg Route: IVP; Site: right antecubital; aj 14:15 Follow up: Response: Marked relief of symptoms; Nausea is decreased aj Disposition: 05/09/19 12:53 Hospitalization ordered by Yousuf Renee for Observation. Preliminary diagnosis are chest pain, unstable angina. - Bed requested for Telemetry/MedSurg (observation). - Status is Observation. aj - Condition is Stable. - Problem is new. - Symptoms have improved. UTI on Admission? No Signatures: Dispatcher [employer] Leela Bentley RN RN Taiwo Ramírez em1 Estiven Todd MD MD wa [place], Michele, RN RN mg2 Corrections: (The following items were deleted from the chart) 15:36 12:53 Hospitalization Ordered by Yousuf Renee MD for Observation. Preliminary diagnosis em1 is chest pain; unstable angina. Bed requested for Telemetry/MedSurg (observation). Status is Observation. Condition is Stable. Problem is new. Symptoms have improved. UTI on Admission? No. wa 16:09 15:36 05/09/2019 12:53 Hospitalization Ordered by Yousuf Renee MD for Observation. aj Preliminary diagnosis is chest pain; unstable angina. Bed requested for Telemetry/MedSurg (observation). Status is Observation. Condition is Stable. Problem is new. Symptoms have improved. UTI on Admission? No. em1
--- NOTE | 2019-05-09 12:54 | ER ---
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 Patient reports vomiting x 2 episodes. Reports chest pain started after N/V SOB. Transition of care: patient was not received from another setting of care. Onset of symptoms was May 09, 2019. Risk Assessment: Do you want to hurt yourself or someone else? Patient reports no desire to harm self or others. Initial Sepsis Screen: Does the patient meet any 2 criteria? No. Patient's initial sepsis screen is negative. Does the patient have a suspected source of infection? No. Patient's initial sepsis screen is negative. Care prior to arrival: None. 10:09 Method Of Arrival: Ambulatory aj 10:09 Acuity: GLORIA 2 aj 10:10 Method Of Arrival: Ambulatory sg 10:11 Acuity: GLORIA 2 sg Triage Assessment: 10:09 General: Appears in no apparent distress. comfortable, obese, Behavior is calm, aj cooperative, appropriate for age. Pain: Complains of pain in chest. Neuro: Level of Consciousness is awake, alert, obeys commands, Oriented to person, place, time, situation, Appropriate for age. Cardiovascular: Reports chest pain, diaphoresis, nausea, shortness of breath, Capillary refill < 3 seconds in bilateral fingers Patient's skin is warm and dry. Rhythm is regular. Respiratory: Airway is patent Respiratory effort is even, unlabored, Respiratory pattern is regular, symmetrical. Derm: Skin is intact, is healthy with good turgor, Skin is pink, warm \T\ dry. normal. Historical: - Allergies: 10:03 No Known Allergies; aj - Home Meds: 10:03 carvedilol 12.5 mg oral tab 1 tab 2 times per day [Active]; vitammin D 2 50,000 unit aj capsule Twice per week [Active]; etodolac 500 mg Oral Tb24 1 tab once daily [Active]; losartan 100 mg oral tab 1 tab once daily [Active]; topiramate 50 mg oral CSpX 2 caps once daily [Active]; levothyroxine 150 mcg tab 1 tab once daily [Active]; olmesartan medoxomil 40 mg daily [Active]; hydroxychloroquine 200 mg oral tab 2 tabs once daily [Active]; amlodipine 5 mg tab 1 tab once daily [Active]; - PMHx: 10:03 Hypertension; Hypothyroidism; aj 10:03 Arthritis; aj - Immunization history:: Adult Immunizations up to date. - Social history:: Smoking status: Patient/guardian denies using tobacco. - Ebola Screening: : Patient negative for fever greater than or equal to 101.5 degrees Fahrenheit, and additional compatible Ebola Virus Disease symptoms Patient denies exposure to infectious person Patient denies travel to an Ebola-affected area in the 21 days before illness onset No symptoms or risks identified at this time. - Family history:: not pertinent. Screenin:47 Abuse screen: Denies threats or abuse. Denies injuries from another. Nutritional aj screening: No deficits noted. Tuberculosis screening: No symptoms or risk factors identified. Fall Risk None identified. Assessment: 10:47 Reassessment: Patient appears in no apparent distress at this time. No changes from aj previously documented assessment. Patient and/or family updated on plan of care and expected duration. Pain level reassessed. Patient is alert, oriented x 3, equal unlabored respirations, skin warm/dry/pink. 12:34 Reassessment: Patient appears in no apparent distress at this time. No changes from aj previously documented assessment. Patient and/or family updated on plan of care and expected duration. Pain level reassessed. Patient is alert, oriented x 3, equal unlabored respirations, skin warm/dry/pink. Family at bedside. 13:56 Reassessment: Patient reports nausea with SOB that has gotten worse suddenly. Dr deangelo Pathak gave order to Zofran and repeat EKG ordered. General: Appears in no apparent distress. uncomfortable, Behavior is calm, cooperative, appropriate for age. Pain: Denies pain. Neuro: Level of Consciousness is awake, alert, obeys commands, Oriented to person, place, time, situation, Appropriate for age. Cardiovascular: Reports nausea, shortness of breath, Capillary refill < 3 seconds in bilateral fingers Patient's skin is warm and dry. Rhythm is regular. Derm: Skin is intact, is healthy with good turgor, Skin is pink, warm \T\ dry. normal. 13:56 Respiratory: Reports shortness of breath at rest Airway is patent Respiratory effort is aj even, unlabored, Respiratory pattern is regular, symmetrical. 14:48 Reassessment: Patient placed on Life Pack per Dr Todd on monitor mode with pads in aj place. Vital Signs: 10:09 BP 122 / 77; Pulse 64; Resp 19; Temp 98.4; Pulse Ox 94% on R/A; Weight 90.72 kg; Height aj 5 ft. 2 in. (157.48 cm); 11:28 BP 120 / 80; Pulse 63; Resp 16; Pulse Ox 96% on R/A; aj 12:35 BP 116 / 79; Pulse 63; Resp 19; Pulse Ox 99% on R/A; aj 13:55 BP 154 / 90; Pulse 62; Resp 16; Pulse Ox 100% on R/A; aj 14:49 BP 126 / 73; Pulse 64; Resp 17; Pulse Ox 97% on R/A; aj 10:09 Body Mass Index 36.58 (90.72 kg, 157.48 cm) aj ED Course: 09:48 Patient arrived in ED. mr 09:48 Yousuf Renee MD is Private Physician. mr 09:55 Estiven Todd MD is Attending Physician. wa 09:57 Leela Foreman, RN is Primary Nurse. aj 10:01 EKG done, by test lab technician. reviewed by Estiven Todd MD. sm3 10:09 EKG completed in triage. Results shown to MD. aj 10:10 Triage completed. aj 10:11 Arm band placed on. sg 10:15 Inserted saline lock: 20 gauge in right antecubital area, using aseptic technique. aj Blood collected. Patient maintains SpO2 saturation greater than 95% on room air. 10:36 X-ray completed. Portable x-ray completed in exam room. Patient tolerated procedure jb2 well. 10:39 XRAY Chest (1 view) In Process Unspecified. EDMS 11:54 US Abdomen Limited In Process Unspecified. EDMS 12:52 Yousuf Renee MD is Hospitalizing Provider. wa 13:24 Repeat lab(s) drawn. by ks, sent to lab. 3 13:29 Troponin (emerg Dept Use Only) Sent. jp3 14:14 EKG done, by test lab technician. reviewed by Estiven Todd MD. at1 Administered Medications: 10:50 Drug: Aspirin Chewable Tablet 324 mg Route: PO; aj 11:28 Follow up: Response: No adverse reaction aj 12:56 Drug: Lovenox 90 mg Route: Sub-Q; Site: right upper abdomen; aj 13:50 Follow up: Response: No adverse reaction mg2 13:55 Drug: Zofran 4 mg Route: IVP; Site: right antecubital; aj 14:15 Follow up: Response: Marked relief of symptoms; Nausea is decreased aj Outcome: 12:53 Decision to Hospitalize by Provider. wa 16:09 Patient left the ED. aj Signatures: Dispatcher [employer] EDMS Jesus Lane RN RN sg Myers, Amanda RN Katherine Appiah mr Rogers Cameron jb2 Leela Whitfield, striper machine EKG Tat1 Estiven Todd MD MD wa Gardose, Michele, RN RN [facility] [place] Danette Fierro 3 Weston Villatoro jp3 Corrections: (The following items were deleted from the chart) 10:11 10:10 Presenting complaint: Patient states: Chest pain that began this morning, reports sg nausea and feeling dizzy, denies fever/vomiting/chills at this time 10:11 10:10 Transition of care: patient was not received from another setting of care. [facility] 10:11 10:10 Onset of symptoms was May 09, 2019 [facility] 10:11 10:10 Risk Assessment: Do you want to hurt yourself or someone else? Patient reports no sg desire to harm self or others. 10:11 10:10 Initial Sepsis Screen: Does the patient meet any 2 criteria? No. Patient's sg initial sepsis screen is negative. Does the patient have a suspected source of infection? No. Patient's initial sepsis screen is negative. 10: 10:10 Care prior to arrival: None. [facility] 10: 10:10 Acuity: GLORIA 3 sg sg
[2019-05-09] MEDS ORDERED: ENOXAPARIN 100 MG/ML SYR SQ ONE (13:09)
[2019-05-09] MEDS ORDERED: ONDANSETRON 4 MG/2 ML VIAL ONE (14:05)
--- NOTE | 2019-05-09 20:59 | P.HP ---
Certification for Inpatient Patient admitted to: Observation With expected LOS: <2 Midnights Practitioner: I am a practitioner with admitting privileges, knowledge of patient current condition, hospital course, and medical plan of care. Services: Services provided to patient in accordance with Admission requirements found in Title 42 Section 412.3 of the Code of Federal Regulations Patient History Date of Service: 05/09/19 Reason for admission: CHEST PAIN AND DIAPHORESIS TODAY History of Present Illness: MS. ACOSTA IS A MENOPAUSAL, NON SMOKER, NON DIABETIC WOMAN WHO HAS BEEN MORE FATIUED LATELY AND COMES WITH SUDDEN DIAPHORESIS AND SOME CHEST HEAVINESS HAPPENED TWICE TODAY ONCE AT HOME AND ONCE IN ER. NOW SHE IS SYMPTOMFREE ON THE FLOOR. Allergies No Known Allergies Allergy (Verified 05/09/19 17:09) Home Medications: Amlodipine [Norvasc] 5 mg PO DAILY 05/09/19 Carvedilol [Coreg] 6.25 mg PO BIDAC 05/09/19 Carvedilol [Coreg] 12.5 mg PO BIDAC 05/09/19 Ergocalciferol (Vitamin D2) [Vitamin D2] 50,000 unit PO SEECOM 05/09/19 Etodolac [Lodine Xl] 500 mg PO DAILY 05/09/19 Hydroxychloroquine [Plaquenil] 400 mg PO DAILY 05/09/19 Levothyroxine Sodium [Synthroid] 150 mcg PO 0600 05/09/19 Losartan Potassium [Cozaar] 100 mg PO DAILY 05/09/19 Olmesartan Medoxomil [Benicar] 40 mg PO DAILY 05/09/19 Topiramate 50 mg PO BID 05/09/19 - Past Medical/Surgical History Has patient received pneumonia vaccine in the past: No Diabetic: No -: HTN -: Hypothyroidism -: Rheumatoid Arthritis -: Back surgery - Nuts and bolts to the L4 & L5 - Social History Smoking Status: Never smoker Alcohol use: Yes CD- Drugs: No Caffeine use: Yes Place of Residence: Home Review of Systems 10-point ROS is otherwise unremarkable Physical Examination - Vital Signs Temperature: 96.9 F Blood Pressure: 158/84 Pulse: 68 Respirations: 18 Pulse Ox (%): 96 - Physical Exam General: Alert, In no apparent distress, Obese HEENT: Atraumatic, PERRLA, Mucous membr. moist/pink, EOMI, Sclerae nonicteric Neck: Supple, 2+ carotid pulse no bruit, No LAD, Without JVD or thyroid abnormality Respiratory: Clear to auscultation bilaterally, Normal air movement Cardiovascular: Regular rate/rhythm, Normal S1 S2 Gastrointestinal: Normal bowel sounds, No tenderness Musculoskeletal: No tenderness Integumentary: No rashes Neurological: Normal gait, Normal speech, Normal strength at 5/5 x4 extr, Normal tone, Normal affect Lymphatics: No axilla or inguinal lymphadenopathy - Studies Laboratory Data (last 24 hrs) 05/09/19 10:19: PT 11.4, INR 0.96 05/09/19 10:19: WBC 10.5, Hgb 15.4 H, Hct 46.0 H, Plt Count 170 05/09/19 10:19: Sodium 140, Potassium 3.9, BUN 17, Creatinine 0.98, Glucose 121 H, Magnesium 2.0, Total Bilirubin 1.6 H, AST 16, ALT 27, Alkaline Phosphatase ND Assessment and Plan - Problems (Diagnosis) (1) Unstable angina Current Visit: Yes Status: Acute Plan: MODERATE RISK FOR CAD. OBESITY, MENOPAUSAL STATUS. EKG SHOWS ANT CHANGES. POSSIBLE ST TEST OR CATH SOON DR RIVERO HAS BEEN CALLED. (2) Hypothyroid Current Visit: Yes Status: Acute Plan: ON MEDS. FU DONE. (3) History of hepatitis C virus infection Current Visit: Yes Status: Acute Plan: TREATED AND CURED. FU HEP C. - Advance Directives Does patient have a Living Will: Yes Does patient have a Durable POA for Healthcare: Yes
[2019-05-09] MEDS: ACETAMINOPHEN 500 MG TAB PO PRN (21:20)
[2019-05-09 22:31] LABS: Thyroid Stimulating Hormone 3.15 uIU/mL (0.360-3.740)
[2019-05-10 06:29] LABS: Absolute Lymphocytes (CBC) 1.4 K/uL (0.7-4.9); Basophils % 0.5 % (0-1.3); Eosinophils % 1.4 % (0-4.4); Hematocrit 42.6 % (36.0-45.0); Lymphocytes % 14.9 % (15.3-44.8); MPV 10.2 fL (7.6-11.3); Monocytes % 9.5 % (3.3-12.3); RBC Red Blood Cell Count 4.69 M/uL (3.86-4.86)
[2019-05-10 06:34] LABS: Potassium 3.8 mmol/L (3.5-5.1)
--- NOTE | 2019-05-10 06:56 | EKG ---
Test Date: 2019-05-09 Test Time: 14:11:39 Inspection And Testing Supervisor: BILLY MEASUREMENT RESULTS: Intervals: Rate: 61 CT: 162 QRSD: 94 QT: 438 QTc: 440 [place]: P: 34 CT: 162 QRS: 11 T: 58 INTERPRETIVE STATEMENTS: Normal sinus rhythm Cannot rule out Anterior infarct, age undetermined Abnormal ECG Compared to ECG 05/09/2019 09:58:09 No significant changes Electronically Signed On 05-10-19 06:53:23 CDT by Jesus Mendenhall
[2019-05-10] MEDS ORDERED: LEVOTHYROXINE SOD 0.075 MG TAB PO SCH (07:00)
[2019-05-10] MEDS ORDERED: CARVEDILOL 6.25 MG TAB PO SCH (07:30)
[2019-05-10 07:47] LABS: Urine Appearance CLEAR; Urine Blood NEGATIVE (NEG); Urine Color YELLOW; Urine Glucose NEGATIVE (NEG); Urine Protein NEGATIVE (NEG); Urine Specific Gravity 1.015 (1.005-1.030)
[2019-05-10 07:54] LABS: Urine Bilirubin 3+ (NEG)
[2019-05-10 07:55] LABS: Urine Microscopic Reflex NO UMIC
[2019-05-10] MEDS ORDERED: HYDROXYCHLOROQUINE 200MG TAB PO SCH (09:00)
[2019-05-10] MEDS ORDERED: TOPIRAMATE 25 MG TAB PO SCH (09:00)
[2019-05-10] MEDS ORDERED: ASPIRIN EC 81 MG TAB PO SCH (09:00)
--- NOTE | 2019-05-10 11:08 | EKG ---
Test Date: 2019-05-10 Test Time: 07:34:24 Bleach Analyst: BILLY MEASUREMENT RESULTS: Intervals: Rate: 79 IL: 142 QRSD: 90 QT: 386 QTc: 442 [place]: P: 15 IL: 142 QRS: 12 T: 60 INTERPRETIVE STATEMENTS: Normal sinus rhythm Cannot rule out Anterior infarct, age undetermined Abnormal ECG Compared to ECG 05/09/2019 14:11:39 No significant changes Electronically Signed On 05-10-19 11:06:55 CDT by Jesus Mendenhall
[2019-05-10] MEDS: ACETAMINOPHEN 500 MG TAB PO PRN (12:17)
[2019-05-10 19:38] VITALS: BP 136/70; TEMP 99.4; O2SAT 96; BMI 38.8
--- NOTE | 2019-05-11 05:51 | CON ---
Date of Consultation: 05/10/2019 Reason For Consultation: Chest pain. History Of Present Illness: Ms. Christianson is a 58-year-old Latin-Algerian woman without any past cardi ac history, but she has a history of hypertension, hypothyroidism, and gastroesophageal reflux diseas e. She came in with mid-epigastric chest pain, shortness of breath, nausea, vomiting, diaphoresis. Denied PND, orthopnea, pedal edema, palpitation, or syncope. Symptoms have been going on for about 2 days. Symptoms were nonexertional. She denied any fever or chills or diarrhea. Allergies: NONE. Review of Systems: Negative. Social History: Negative. Family History: Noncontributory. Medications At Home: Include Remicade, Coreg, losartan, olmesartan, Synthroid, Norvasc, and hydroxyc hloroquine. Physical Examination: General: Ms. Christianson was in no acute distress. Vital Signs: Stable. She was afebrile. She was in sinus rhythm. HEENT: Negative. Neck: Supple without any bruit, lymphadenopathy, JVD, or thyromegaly. Chest: Clear to auscultation and percussion. Cardiac: Revealed a regular rhythm and rate without any murmurs, gallops, or rubs. Abdomen: Benign. Extremities: Revealed no clubbing, cyanosis, or edema. Imaging Studies: Her chest x-ray was negative. EKG showed normal sinus rhythm with possible old MD in the anterior wall. She has had an abdominal ultrasound that was negative. Laboratory Data: Her laboratory evaluation was negative. Her troponin was negative. Impression And Plan: Atypical chest pain, most likely gastroesophageal reflux disease. She could ce rtainly have a viral gastroenteritis. It is unusual to have vomiting and nausea from a cardiac stand point and yet still have a normal EKG and normal troponin. I agree with an echocardiogram that has b lurdes ordered. Her blood pressure and hypothyroid status are stable. I think if her echocardiogram is normal, she can certainly go home and have an outpatient stress test. I will discuss the case [facility] with Dr. Renee. RODNEY/SHEREENL Voice ID: [id number] Report ID: [id number]
== END 2019-05-10 14:22 | disposition home or self-care (01) ==
LOC: ER 09:46 → ERHOLD 12:55 → 2ND 15:51
PROVIDERS: ADMIT Internal Medicine; ATTEND Internal Medicine
DX: I20.0 Unstable angina (principal); I10 Essential (primary) hypertension; E03.9 Hypothyroidism, unspecified; M06.9 Rheumatoid arthritis, unspecified; Z86.19 Personal history of other infectious and parasitic diseases
CPT/HCPCS: 93005 ×3; 85025 ×2; 80048 ×2; 36415; 83721; 83735; 85610; 80076; 84443; 81003; 84484 ×4; 83880; 71045; 76705; 96372; 96374; 99284; J1650; J2405; G0378 ×2

== ENCOUNTER 2021-11-25 06:27 | Day surgery (SDC) | payer OTHER ==
[2021-11-21 13:31] LABS: Absolute Lymphocytes (CBC) 2.2 K/uL (0.7-4.9); Hematocrit 42.1 % (36.0-45.0); Lymphocytes % 30.7 % (15.3-44.8); RBC Red Blood Cell Count 4.86 M/uL (3.86-4.86)
[2021-11-21 13:40] LABS: Protime INR 0.96
[2021-11-21 13:45] LABS: Potassium 3.8 mmol/L (3.5-5.1)
--- NOTE | 2021-11-21 14:39 | RAD REPORT ---
EXAM DESCRIPTION: Khoa Martínez And Corinne (2 Views)11/21/2021 1:43 pm CLINICAL HISTORY: Preop for genitourinary surgery COMPARISON: None FINDINGS: The lungs appear clear of acute infiltrate. The heart is mildly enlarged. Aorta is tortuous/ectatic IMPRESSION: No acute abnormalities displayed
[2021-11-25] MEDS ORDERED: Ringers Lactate 1,000 ML IV ONE (06:33)
[2021-11-25] MEDS ORDERED: CEFAZOLIN/SWI 2gm 2 GM/20 ML SYR ONE (06:33)
[2021-11-25] MEDS ORDERED: ONDANSETRON 4 MG/2 ML VIAL ONE ×2 (06:59→08:56)
[2021-11-25] MEDS ORDERED: FENTANYL CITR 100 MCG/2 ML ONE (06:59)
[2021-11-25] MEDS ORDERED: LIDOCAINE 1% MPF 5 ML VIAL ONE (06:59)
[2021-11-25] MEDS ORDERED: dexAMETHasone 10 MG/ML VIAL ONE (06:59)
[2021-11-25] MEDS ORDERED: MIDAZOLAM HCL 2 MG/2 ML INJ ONE (06:59)
[2021-11-25] MEDS ORDERED: propofoL 200 MG/20 ML VIAL IV ONE (06:59)
[2021-11-25] MEDS ORDERED: ACETAMINOPHEN 500 MG TAB ONE (07:04)
[2021-11-25] MEDS ORDERED: ACETAMINOPHEN 500 MG TAB PO ONE (07:04)
[2021-11-25] MEDS ORDERED: PHENAZOPYRIDINE 100MG TAB PO ONE ×2 (07:43→09:02)
[2021-11-25] MEDS ORDERED: CODEINE 30MG/APAP 300MG TAB PO PRN (07:43)
[2021-11-25] MEDS ORDERED: GLYCOPYRROLATE 0.2 MG/ML SYR ONE (07:52)
[2021-11-25] MEDS ORDERED: EPHEDRINE SULF 50 MG/ML VIAL ONE (07:57)
[2021-11-25] MEDS ORDERED: ROCURONIUM 50 MG/5 ML VIAL IV ONE (08:16)
[2021-11-25] MEDS: HYDROMORPHONE HCL 1 MG/ML INJ ONE ×4 (08:42→08:57)
--- NOTE | 2021-11-25 08:42 | RAD REPORT ---
EXAM DESCRIPTION: RAD - Urethrocystogrphy Retrograde - 11/25/2021 8:29 am CLINICAL HISTORY: RIGHT STENT COMPARISON: Abdomen Pelvis W Contrast dated 10/23/2021 FINDINGS/IMPRESSION: Multiple intraoperative fluoroscopic images were submitted showing cannulation of the right ureter with catheter and guidewire. Again noted is a stone in the right proximal ureter. Ultimately, a right sided ureteral stent was placed. Total images: 17 Fluoro time: 20 seconds
[2021-11-25] MEDS ORDERED: KETOROLAC 30 MG/ML INJ IV ONE ×2 (08:43→09:02)
[2021-11-25] MEDS ORDERED: KETOROLAC 30 MG/ML INJ ONE ×2 (08:45→09:01)
--- NOTE | 2021-11-25 09:28 | OP ---
Surgeon: MARY PARKS Preoperative Diagnosis: Right nephroureterolithiasis. Postoperative Diagnoses: 1.Right nephroureterolithiasis. 2.Right Zaid's plaques. 3.Meatal stenosis. Principal Procedures: 1.Right ureteroscopy with laser lithotripsy and stent placement. 2.Ureteral dilation using sound. Indication For Procedure: Ms. Christianson presented to the Urology Clinic with gross hematuria and evalu ation cystoscopically was without the presence of a bladder tumor, but upper tract revealed the prese nce of an obstructing right 5 mm ureteral calculus. She had additional calculi noted within the kidn ey on the right side and was thus counseled given the extent of time without passage of the stone and the need for management ureteroscopically. She was counseled in the clinic before arrival today. Procedure In Detail: The patient was consented in the preoperative holding area before being transfe rred to the operative suite where general anesthesia was induced. She was given Ancef 2 g IV antimic robial prophylaxis and pneumo boots were provided for DVT prophylaxis. She was placed in the lithoto my position, padded and secured to the table appropriately. Her genitalia were prepped using Hibicle ns and draped in standard fashion. The case was begun attempting to use the 22-Ugandan rigid cystosco pe to traverse the urethra and enter the bladder. Unfortunately, due to meatal stenosis, the meatus was unable to be cannulated. As a result, I employed urethral sounds to dilate the meatus from 18-Fr ench to 26-Ugandan with ease. I then was able to insert the 22-Ugandan rigid cystoscope into her bladd er with ease and decompressed of fluid and urine. I identified the right ureteral orifice, which was orthotopic within the trigone and cannulated it with a 5-Ugandan ureteral access catheter. A retrogr keron pyelogram was then performed. Right retrograde pyelography: Using a 70:30 mixture of Omnipaque and saline, contrast was injected v ia the lumen of the 5-Ugandan ureteral access catheter and did propagate up a relatively nondilated di stal ureter before meeting a point of filling defect and obstruction in the proximal ureter consisten t with the presence of a stone. Minimal contrast did emanate beyond the point of obstruction and int o the renal pelvis. As a result, I then passed a Sensor wire via the 5-Ugandan ureteral access cathet er and was able to successfully navigate it beyond the point of obstruction and into the putative upp er pole of the kidney. This was confirmed fluoroscopically by the wire coiling within an area occupi ed by the previously injected contrast. I then removed the 5-Ugandan ureteral access catheter and pas sed over the Sensor wire a dual-lumen catheter. Again, contrast was injected to confirm the appropri ate intraluminal location. Of note, the dual-lumen catheter had to be gently urged to pass beyond th e point of stenosis within the distal ureter, but I was able to then navigate it beyond that point an d into the proximal ureter. I then passed a Bentson guidewire in the second lumen of the dual-lumen catheter and coiled it alongside the indwelling safety wire in the upper pole of the kidney. I then removed the dual-lumen catheter and attempted to perform ureteroscopy using a flexible ureteroscope, but it would not pass beyond the point of stenosis at the ureteral orifice. As a result, I employed the ureteral access sheath, which was again navigated beyond the point of stenosis in the distal uret er, but was eventually able to be passed into the proximal ureter just distal to the calculus. I the n was able to pass the flexible ureteroscope over the Bentson guidewire via the ureteral access sheat h and directly up to the stone, which was visible in the proximal ureter. Using a 200 nm laser fiber at a power setting of 0.8 joules and 8 hertz alternating with 0.3 joules and 40 hertz, I was able to quickly fragment the stone and the fragments went into the renal pelvis. I then navigated the urete roscope into the renal pelvis and continued to fragment the stones there until the fragments were sma ll than 1 mm in diameter. I then surveyed the remainder of the calices of the kidney and only observ ed Zaid's plaques present within the upper and mid pole calices. No other free-floating calculi w ere present. As a result, I surveyed the renal pelvis before surveying down into the proximal, mid, and distal ureter retracting the ureteral access sheath along the way. No additional calculi were no princess along the course of the ureter and ureteroscopy was completed. I then back-loaded the rigid cyst oscope over the indwelling safety wire and passed a 6-Ugandan x 26 cm double-J right ureteral stent in to her left kidney with ease with a coil observed fluoroscopically there was and 1 cystoscopically fo rmed in the bladder. She was then taken out of the lithotomy position, awakened from general anesthe hema, transferred to a stretcher, and then transferred to the recovery room in good condition. Complications: None. Discharge Disposition: Given the prolonged length of impaction of the stone, I recommend the stent r emain in place for about 2 to 3 weeks before removal in clinic via cystoscopy. I will discharge her home with a few days of additional antimicrobial therapy for prophylaxis. AZAR/SHEREENL Voice ID: [id number] Report ID: [id number]
[2021-11-25] MEDS ORDERED: PROMETHAZINE INJ 25 MG/ML AMP ONE (09:51)
[2021-11-25 10:16] VITALS: BP 163/91; TEMP 97.4; O2SAT 96
[2021-11-25] MEDS ORDERED: CODEINE 30MG/APAP 300MG TAB ONE (10:52)
--- NOTE | 2021-11-26 07:36 | EKG ---
Test Date: 2021-11-21 Test Time: 13:06:47 Glove Pairer: PAVAN MEASUREMENT RESULTS: Intervals: Rate: 53 SC: 170 QRSD: 84 QT: 418 QTc: 392 [place]: P: 50 SC: 170 QRS: 25 T: 20 INTERPRETIVE STATEMENTS: Sinus bradycardia Low voltage QRS Nonspecific T wave abnormality Abnormal ECG Compared to ECG 05/10/2019 07:34:24 Low QRS voltage now present T-wave abnormality now present Sinus rhythm no longer present Myocardial infarct finding no longer present Electronically Signed On 11-26-21 07:27:17 TANGLED YARN SPOOL STRAIGHTENER by Jesus Mendenhall
== END 2021-11-25 11:29 | disposition home or self-care (01) ==
LOC: OR 06:27
PROVIDERS: ATTEND Urology
PROC: 0T768DZ Dilation of Right Ureter with Intraluminal Device, Via Natural or Artificial Opening Endoscopic (ICD-10-PCS; 2021-11-25)
PROC: 0TCB8ZZ Extirpation of Matter from Bladder, Via Natural or Artificial Opening Endoscopic (ICD-10-PCS; principal; 2021-11-25 07:30)
DX: N20.2 Calculus of kidney with calculus of ureter (principal); Z20.822 Contact with and (suspected) exposure to COVID-19
CPT/HCPCS: 52317; 52351; 52332; 93005; 87088; 85025; 87086; 80048; 36415; 85610; 71046; 74450; 51610; U0003; J2704; J2550; J2250; J3010; J1100; J1170 ×2; J0690; J7120; J2405 ×2

== ENCOUNTER 2022-08-01 04:28 | Emergency (ER) | payer OTHER ==
--- OUTSIDE RECORDS SUMMARY | 2022-08-01 04:32 | XMS REPORT | Continuity of Care Document ---
:1960 Author Organization [facility] t Address [address] [place] [address] Care Team Providers Name Role Phone YOUSUF LINARES Primary Care Physician UnavailYousuf Glass Attending Clinician Unavailable WESLEY BENAVIDES Attending Clinician Unavailable NIKHIL MELARA Attending Clinician Unavailable Wesley Benavides MD Attending Clinician Elias Hidalgo DO Attending Clinician Nikhil Melara MD Attending Clinician DEMETRA STANLEY NP Attending Clinician Unavailable LISA CONCEPCION M.D. Attending Clinician Unavailable Payers Payer Name Policy Type Policy Number Effective Date Expiration Date S ashly [employer] MEDICARE HMO [id number] 2021 POS PPO 00:00:00 Problems Condition Condition Condition Status Onset Resolution Last Treating Co mments Source Name Details Category Date Date Treatment Clinician Date Intractabl Intractabl Disease Active 2018-11 M ethodi e low back e low back 2-20 st pain pain 00:00: Hospita 00 l Lumbar Lumbar Disease Active 2016-11 Methodi adjacent adjacent 2-20 st segment segment 00:00: Hospita disease disease 00 l with with spondyloli spondyloli sthesis sthesis Rheumatoid Rheumatoid Disease Active [facility] arthritis arthritis 8-31 [facility] 00:00: Medical 00 Center Elevated Elevated Disease [facility] 405 [facility] function function 00:00: Medica l tests tests 00 Center Obesity Obesity Disease Active [facility] Hypertensi Hypertensi Disease Active [facility] on on 02-10 [facility] Immunity Immunity Disease Active [facility] status status 05 [facility] testing testing 00:00: Medical [place] Fatty Fatty Disease Active [facility] liver liver 05 [facility] 00:00: Medical [place] Chronic Chronic Disease Active [facility] hepatitis hepatitis 05 [facility] C C 00:00: Medical 00 [place] Malabsorpt Malabsorpt Problem Active U T ion due to ion due to Ph ysici intoleranc intoleranc an s e, not e, not elsewhere elsewhere classified classified History of History of Problem Resolve UT malnutriti malnutriti d Ph ysici on on ans Fatty Fatty Problem Active [facility] liver liver Physici ans Malnutriti Malnutriti Problem Active U T on on Physici ans Allergies, Adverse Reactions, Alerts Allergy Allergy Status Severity Reaction(s) Onset Inactive Treating Comm ents Source Name Type Date Date Clinician NO KNOWN Allergy Active [facility] Family History Family Member Diagnosis Comments Start Date Stop Date Source Natural father Cancer [facility] Natural father Heart disease [facility] Natural father Diabetes [facility] Natural father Heart disease [facility] Natural father Hypertension [facility] Natural mother [facility] Natural mother Lung disease [facility] Natural sister Diabetes [facility] Natural sister Hypertension [facility] Social History Social Habit Start Date Stop Date Quantity Comments Source History SDOH [facility] Frequency [facility] History SDOH [facility] Alcohol Std Medical Cent[facility] r Drinks History SDOH [facility] Binge Medical [facility] Alcohol intake 2019-10-28 2019-10-28 Current drinker [facility]o dist 00:00:00 00:00:00 of [facility] (finding) Tobacco use and 2017-09-20 2017-09-20 Smokeless tobacco [facility] exposure 00:00:00 00:00:00 non-user Hospital Alcohol Comment 2017-09-20 2017-09-20 1 per month Methodis t 00:00:00 00:00:00 Hospital Sex Assigned At [birth year] [facility] 00:00:00 00:00:00 Hospital Smoking Status Start Date Stop Date Source Never sm[facility] Medications Ordered Filled Start Stop Current Ordering Indication Dosage Frequency Signature Comments Components Source Medication Medication Date Date Medication? Clinician (SIG) Name Name amLODIPine Yes Chronic 5mg QD Take [address] (NORVASC) 5 2-20 hepatitis C by mouth [facility]ukes MG tablet 14:53: without daily. Med ical 37 hepatic Center coma (HCC) olmesartan Yes Chronic 20mg QD Take [address] (BENICAR) 2-20 hepatitis C by mouth Lukes 20 MG 14:53: without daily. Medical tablet 37 hepatic Center coma (HCC) carvedilol Yes hypertensio 37.5mg QD Take 37.[address] (COREG) 2-20 n mg by Lukes 6.25 MG 14:53: mouth Medical tablet 37 daily . Center topiramate Yes Chronic 50mg Q.5D Take [address] (TOPAMAX) 2-20 hepatitis C by mouth 2 Lukes 50 MG 14:53: without (two) Medical tablet 37 hepatic times Center coma (HCC) daily. omega-3 Yes 1{capsu Q.5D Take 1 [facility] t fatty 2-20 le} capsule by [facility]ukes acids-vitam 14:53: mouth 2 Med ical in E 1,000 37 (two) Center mg Cap times daily. oxyCODONE-a Yes 1{tbl} Take [address] cetaminophe 2-20 tablet by Lauri es n 00:00: mouth Medical (PERCOCET) 00 every 8 Center 5-325 mg (eight) per tablet hours as needed for Pain. Max Daily Amount: 3 tablets nitrofurant 2021- No 100mg Q.5D Take [address] oin, 2-20 02-27 capsule [facility]ukes macrocrysta 00:00: 23:59 (100 mg Me dical l-monohydra 00 :00 total) by [facility] ter te, mouth 2 (MACROBID) (two) 100 MG times capsule daily for 7 days. tamsulosin No .4mg QD Take [address] (FLOMAX) 12-28 capsule [facility]ukes 0.4 mg Cap 00:00: 23:59 (0.4 mg Med ical 24 hr 00 :00 total) by Center capsule mouth daily for 7 days. phenazopyri 2021- No 200mg Q.[id number] Take [address] dine 12-28 [id number] tablet [facility]ukes (PYRIDIUM) 00:00: 23:59 3D (200 mg Med ical 200 MG 00 :00 total) by Center tablet mouth 3 (three) times daily for 5 days. levothyroxi 2018-11 Yes 150ug QD Take 150 M ethodi ne 2-[address] (SYNTHROID, 13:46: mouth Hospi ta LEVOXYL) 19 daily. l 150 mcg tablet hydroxychlo 2018-11 Yes 200mg Q.5D Take 200 M ethodi roquine 2-[address] (PLAQUENIL) 13:46: mouth 2 Hos vamshi 200 mg 19 (two) l tablet times a day. topiramate 2018-11 Yes 50mg Q.5D Take 50 mg M ethodi (TOPAMAX) 2-[address] 50 MG 13:46: (two) Hospita tablet 19 times a l day. carvedilol 2018-11 Yes 6.25mg Q.5D Take 6.25 Methodi (COREG) 2-[address] 6.25 MG 13:46: mouth 2 Hospita tablet 19 (two) l times a day. etodolac 2018-11 Yes 500mg QD Take 500 Meth jim (LODINE) 2-[address] 500 MG 13:46: mouth Hospita tablet 19 daily. l INFLIXIMAB 2018-11 Yes Q28D Infuse Metho di (REMICADE 2-[address] IV) 13:46: venous Hospita 19 catheter l every 28 days. amLODIPine 2018-11 Yes 5mg QD Take 5 mg Me thodi (NORVASC) 5 2-[address] mg tablet 13:46: daily. Hospit a 19 l leflunomide 2016-11 Yes 20mg QD Take 20 mg Methodi (ARAVA) 20 0-[address] MG tablet 00:00: once Hospita 00 daily. l levothyroxi Yes Chronic 150ug QD Take [address] ne 8-31 hepatitis C mcg by Segundo (SYNTHROID, 08:26: without mouth Me dical LEVOTHROID) [address] 150 MCG coma (HCC) tablet etodolac Yes Chronic 500mg Q.5D Take [address] (LODINE) 8- hepatitis C mg by Lauri es 500 MG 08:26: without mouth 2 Medic al tablet 52 hepatic (two) Center coma (HCC) times daily. hydroxychlo Yes Chronic 200mg Q.5D Take [address] roquine 8-31 hepatitis C mg by Sonny s (PLAQUENIL) 08:26: without mouth 2 Medical 200 mg 52 hepatic (two) Center tablet coma (HCC) times daily. INFLIXIMAB Yes Chronic Inject [facility] (REMICADE 8- hepatitis C intravenou Segundo IV) 08:26: without sly once Medica l 52 hepatic every 4 Center coma (HCC) weeks. acetaminoph Yes Chronic 1{tbl} Take [address] en-codeine 8 hepatitis C tablet by Segundo (TYLENOL 08:26: without mouth as Me dical #4) 300-60 52 hepatic needed for Center mg per coma (HCC) Pain. tablet Vital Signs Vital Name Observation Time Observation Value Comments Source HEIGHT 2021-12-28 13:13:00 152.4 cm WEIGHT 2021-12-28 13:13:00 77.111 kg HEIGHT 2021-12-28 13:13:00 152.4 cm WEIGHT 2021-12-28 13:13:00 77.111 kg HEIGHT 2021-12-28 13:13:00 152.4 cm WEIGHT 2021-12-28 13:13:00 77.111 kg Systolic blood 2021-12-28 18:04:00 165 mm[Hg] [facility] pressure [facility] Diastolic blood 2021-12-28 18:04:00 89 mm[Hg] [facility] Heart rate 2021-12-28 18:04:00 61 /min [facility] Body temperature 2021-12-28 18:04:00 36.56 Jolly [facility] Respiratory rate 2021-12-28 18:04:00 17 /min [facility] Oxygen saturation in 2021-12-28 18:04:00 97 /min [facility] Arterial blood by Medical Ce nter Pulse oximetry Body height 2021-12-28 13:13:00 152.4 cm [facility] Body weight 2021-12-28 13:13:00 77.111 kg [facility] BMI 2021-12-28 13:13:00 33.20 kg/m2 [facility] BP Systolic 2019-01-27 10:17:00 118 mm[Hg] [facility] Physi [facility] BP Diastolic 2019-01-27 10:17:00 75 mm[Hg] CT Physi [facility] Height 2019-01-27 10:17:00 62 [in_us] CT Physi [facility] Weight 2019-01-27 10:17:00 211 [lb_av] [facility] Body Mass Index 2019-01-27 10:17:00 38.59 kg/m2 [facility] Calculated Temperature 2019-01-27 10:17:00 97 [degF] [facility] Heart Rate 2019-01-27 10:17:00 62 /min [facility] Procedures Procedure Date / Time Performing Clinician Source Performed CT ABDOMEN/PELVIS 2021-12-28 16:03:00 Elias Hidalgo [facility] WITHOUT IV CONTRAST Center URINE CULTURE 2021-12-28 14:17:00 Elias Hidalgo [facility] URINALYSIS W/ REFLEX 2021-12-28 14:17:00 Elias Hidalgo [facility] URINE CULTURE Center BASIC METABOLIC PANEL 2021-12-28 14:16:00 Elias Hidalgo [facility] (7) Center MAGNESIUM 2021-12-28 14:16:00 Elias Hidalgo [facility] CBC W/PLT COUNT & AUTO 2021-12-28 14:16:00 Elias Hidalgo [facility] DIFFERENTIAL Center CBC W/PLT COUNT & AUTO 2021-12-28 14:16:00 Elias Hidalgo [facility] DIFFERENTIAL Center [QLH] FOLATE, SERUM 2019-03-06 00:00:00 [facility] [QLH] HEMOGLOBIN A1c 2019-03-06 00:00:00 [facility] [QLH] IRON AND TOTAL 2019-03-06 00:00:00 [facility] IRON BINDING CAPACITY [QLH] LIPID PANEL 2019-03-06 00:00:00 [facility] [QLH] PTH, INTACT 2019-03-06 00:00:00 [facility] (WITHOUT CALCIUM) [QLH] TSH, 3RD 2019-03-06 00:00:00 [facility] GENERATION [QLH] VITAMIN A 2019-03-06 00:00:00 [facility] (RETINOL) [QLH] VITAMIN B1, WHOLE 2019-03-06 00:00:00 [facility] BLOOD [QLH] VITAMIN B12 2019-03-06 00:00:00 [facility] [QLH] VITAMIN D, 2019-03-06 00:00:00 [facility] Physicia ns 25-HYDROXY, LC/MS/MS [QLH] VITAMIN E 2019-03-06 00:00:00 [facility] (TOCOPHEROL) [QLH] AMYLASE 2019-03-06 00:00:00 [facility] [QLH] LIPASE 2019-03-06 00:00:00 [facility] Physician [facility] US Liver [id number] 2019-01-27 00:00:00 [facility] Plan of Care Planned Activity Planned Date Details Comments Source Future Scheduled 2022-07-09 INFLUENZA VACCINE (#1) C HI [facility] Test 00:00:00 [code = INFLUENZA Medical Ce nter VACCINE (#1)] Future Scheduled 2022-07-07 COVID-19 VACCINE (#1) [facility] Test 22:09:11 [code = COVID-19 VACCINE (#1)] Future Scheduled 2022-07-07 Screening for [facility] Test 22:09:11 malignant neoplasm of cervix (procedure) [code = 479842550] Future Scheduled 2022-07-07 BREAST CANCER [facility] Test 22:09:11 SCREENING [code = BREAST CANCER SCREENING] Future Scheduled 2022-07-07 [facility] Test 22:09:11 [code = COLONOSCOPY SCREENING] Future Scheduled 2022-07-07 SHINGLES VACCINES (1 Met [facility] Test 22:09:11 of 2) [code = SHINGLES VACCINES (1 of 2)] Future Scheduled 2022-07-07 HEPATITIS B VACCINES Met [facility] Test 22:09:11 (1 of 3 - Risk 3-dose series) [code = HEPATITIS B VACCINES (1 of 3 - Risk 3-dose series)] Future Scheduled 2022-07-07 INFLUENZA VACCINE Method is Hospital Test 22:09:11 [code = INFLUENZA VACCINE] Future Scheduled 2021-11-[address] [facility] Test 00:00:00 (12+) [code = Medical Center DEPRESSION SCREENING (12+)] Future Scheduled 2008 SHINGLES VACCINES ([address] [facility] Test 00:00:00 of 2) [code = SHINGLES Medic al Center VACCINES (1 of 2)] Future Scheduled [address] Test 00:00:00 (procedure) [code = [facility] 34256340] Future Scheduled 2002-01-[address] [facility] Test 00:00:00 WELLNESS (YEAR 2 or Medical Center FIRST YEAR if no IPPE) [code = MEDICARE ANNUAL WELLNESS (YEAR 2 or FIRST YEAR if no IPPE)] Future Scheduled [address] [facility] Test 00:00:00 malignant neoplasm of [facility] cervix (procedure) [code = 393138776] Future Scheduled 1977 DTAP/TDAP/TD VACCINES [facility] Test 00:00:00 (1 - Tdap) [code = Medical C enter DTAP/TDAP/TD VACCINES (1 - Tdap)] Future Scheduled 1960 COVID-19 VACCINE (#1) [facility] Test 00:00:00 [code = COVID-[address] VACCINE (#1)] Future Scheduled [address] [facility] Test 00:00:00 malignant neoplasm of [facility] breast (procedure) [code = 938103828] Future Scheduled [address] [facility] Test 00:00:00 (combo) [code = CT Medical C enter Colonography (combo)] Future Scheduled [address] [facility] Test 00:00:00 malignant neoplasm of Medica l Center colon (procedure) [code = 088736572] Future Scheduled [address] [facility] Test 00:00:00 malignant neoplasm of Medica l Center colon (procedure) [code = 689048953] Future Scheduled [address] [facility] Test 00:00:00 malignant neoplasm of Medica l Center colon (procedure) [code = 855901901] Future Scheduled [address] [facility] Test 00:00:00 malignant neoplasm of Medica l Center colon (procedure) [code = 169277600] Future Scheduled 1960 Sigmoidoscopy [code = [facility] Test 00:00:00 Sigmoidoscopy] Medical Debbie ivey Encounters Start End Encounter Admission Attending Care Care Encounter Source Date/Time Date/Time Type Type Clinicians Facility Department ID 2021-12-19 Outpatient Thelma, STLMLC STLMLC [id number] Common 15:16:02 Yousuf [facility] 2021-12-03 Outpatient Thelma, STLMLC STLMLC [id number] Common 14:40:10 Yousuf [facility] 2021-12-03 Outpatient Thelma, STLMLC STLMLC [id number] Common 14:20:53 Yousuf [id number] [facility] 2019-08-15 Inpatient MHFB DAYLIN [id number] MHF B 09:49:29 2019-05-23 Outpatient MHFB CAR [id number] MH FB 08:58:23 2022-01-05 2022-01-05 ambulatory STLMLC STLMLC [id number] Common 00:00:00 00:00:00 [facility] 2021-12-30 2021-12-30 ambulatory STLMLC STLMLC [id number] Common 00:00:00 00:00:00 [facility] 2021-12-28 2021-12-28 Emergency ER [facility] Emergency [id number] SLE 13:17:00 18:05:00 NIKHIL 2021-12-28 2021-12-28 Emergency Wesley Benavides [facility] [id number] 13:17:00 18:05:00 Elias Hidalgo [facility] 2021-12-28 2021-12-28 Travel [facility] [id number] [facility] 00:[facility]:00 00:00:00 [facility] 2021-12-22 2021-12-22 ambulatory STLMLC STLMLC [id number] Common 00:00:00 00:00:00 [facility] 2021-12-17 2021-12-17 ambulatory STLMLC STLMLC [id number] Common 00:00:00 00:00:00 [facility] 2021-11-27 2021-11-27 ambulatory STLMLC STLMLC [id number] Common 00:00:00 00:00:00 [facility] 2021-11-20 2021-11-20 ambulatory STLMLC STLMLC [id number] Common 00:00:00 00:00:00 [facility] 2021-10-23 2021-10-23 ambulatory STLMLC STLMLC [id number] Common 00:00:00 00:00:00 [facility] 2021-10-13 2021-10-13 ambulatory STLMLC STLMLC [id number] Common 00:00:00 00:00:00 [facility] 2019-05-12 2019-05-12 Outpatient E MHFB MED [id number] MHFB 01:05:00 01:05:00 2019-03-06 2019-03-06 AppointZACK Burke [id number] [place] 13:00:00 13:00:00 t; DEMETRA STANLEY NP Multi P hywanda MCCRARY NP Specialty ans 2019-01-27 2019-01-27 Appointmen ZACK CONCEPCION Minimally [id number] [place] 10:30:00 10:30:00 t; LISA CONCEPCION Invasive Physici KULVINDER, M.D. [facility] [place] [facility] Results Test Description Test Time Test Comments Results Result Comments Source Urine culture 2021-12-30 08:42:17 Test Item Value Reference Range Interpretation Comme nts Result (test code = 6463-4) >100,000 col/mL skin nina OLGA (test code = OLGA) <10,000 col/mL Gram negative rods [facility] [id number] 16:34:00Unlisted Reason for Exam - Click Yes and Enter Reason Below->YesUnlisted Reason for Exam->Right flank pain, hematuria, hx of R Renal StentIs this for enterography?->NoWill this procedure require oral contrast?->No [facility] 1960 Sex: FFINALREPORT TECHNIQUE: CT of the abdomen and pelvis WITHOUT intravenous contrast andWITHOUT oral contrast. Dose modulation, iterative reconstruction, and/or weight-based adjustment of the mA/kV was utilized to reduce the radiation dose to as low as reasonably achievable. INDICATION: Abdominal pain, acute, nonlocalizedRight flank pain, hematuria, hx of R Renal Stent. COMPARISON: None. FINDINGS: ABSENCE OF INTRAVENOUS CONTRAST DECREASES SENSITIVITY FOR DETECTION OF FOCAL LESIONS AND VASCULAR PATHOLOGY. LOWER THORAX: Unremarkable. HEPATOBILIARY: No focal hepatic lesions. Gallbladder is unremarkable. No biliary ductal dilatation.SPLEEN: No splenomegaly.PANCREAS: No focal masses or ductal dilatation. ADRENALS: No adrenal nodules.KIDNEYS/URETERS: No exophytic masses. There are at least2 nonobstructing left renal stones which measure up to 0.4 cm. A left lower pole renal cyst measures1.2 cm. No routine follow-up imaging is recommended. There is moderate to severe right hydronephrosis with a right ureteral stent in place which extends from the renal pelvis to the urinary bladder. There is a residual stone in the right mid ureter which measures 0.3 cm on axial image 46. There is fatstranding adjacent to the right renal pelvis. Nonobstructing right lower renal stones measure up to 0.3 cm. PELVIC ORGANS/BLADDER: Prior hysterectomy. The ovaries have a normal postmenopausal CT appearance.. PERITONEUM/RETROPERITONEUM: No free air or fluid.LYMPH NODES: No lymphadenopathy.VESSELS: Mildcalcification of the aortoiliac vasculature. GI TRACT: No distention or wall thickening. Diverticulosis throughout the colon, worst in the sigmoid. The appendix is normal. BONES AND SOFT TISSUES: Prior posterior fusion at L4 and L5 with transverse screws and interconnecting rods. Moderate degenerativedisc changes L5-S1. IMPRESSION: 1.Moderate to severe right hydronephrosis with a right ureteral stent in place. This could be due to stent dysfunction. The fat stranding adjacent to the right renal pelvis could be reactive to the hydronephrosis. Infection cannot be entirely excluded on the basis of this examination. 2.A residual stone in the right mid ureter measures 0.3 cm. 3.Bilateral nonobstructing renal stones measure up to 0.4 cm. Signed: Quinten Lang MDReport Verified Date/Time: 12/28/2021 16:34:06 Reading Location: [facility] C013Y CT Body Reading Room Basic Metabolic [id number] 15:30:36 Test Item Value Reference Range Interpretation Comments Sodium (test code = 143 meq/L 734-658 9121-2) Potassium (test code 4.1 meq/L 3.5-5.1 = 2823-3) Chloride (test code = 109 meq/L 98-107 H 2074-0) CO2 (test code = 27 meq/L 22-29 2027-9) BUN (test code = 15 mg/dL 7-21 3094-0) Creatinine (test code 0.95 mg/dL 0.57-1.25 = 2160-0) Glucose (test code = 94 mg/dL 70-105 2345-7) Calcium (test code = 8.9 mg/dL 8.4-10.2 69249-3) EGFR (test code = 59 mL/min/1.73 sq m INSUFF ICIENT 61058-4) CLINICAL DATA T O CALCULATE ESTIMATED GFR. OLGA (test code = OLGA) [place] ANASTAC[facility] Interpretation Abnormal (test code = 77183-9) [facility] 15:30:36 Test Item Value Reference Range Interpretation Comments Magnesium (test code = 2.0 mg/dL 1.6-2.6 32059-3) OLGA (test code = OLGA) [place] ID [facility] Interpretation (test Normal code = 03941-0) [facility] METABOLIC [id number] 15:30:36 Test Item Value Reference Range Interpretation Comments SODIUM (BEAKER) 143 meq/L 136-145 (test code = 381) POTASSIUM (BEAKER) 4.1 meq/L 3.5-5.1 (test code = 379) CHLORIDE (BEAKER) 109 meq/L 98-107 H (test code = 382) CO2 (BEAKER) (test 27 meq/L 22-29 code = 355) BLOOD UREA NITROGEN 15 mg/dL 7-21 (BEAKER) (test code = 354) CREATININE (BEAKER) 0.95 mg/dL 0.57-1.25 (test code = 358) GLUCOSE RANDOM 94 mg/dL 70-105 (BEAKER) (test code = 652) CALCIUM (BEAKER) 8.9 mg/dL 8.4-10.2 (test code = 697) EGFR (BEAKER) (test 59 mL/min/1.73 INSUFF ICIENT CLINICAL code = 1092) sq m DATA TO CALCULA TE ESTIMATED GFR. [place] ID - DERIC [id number] 15:30:36 Test Item Value Reference Range Interpretation Comments MAGNESIUM (BEAKER) (test code = 2.0 mg/dL 1.6-2.6 627) [place] [facility] ID - DERIC MCBC with platelet count + automated [id number] 14:57:05 Test Item Value Reference Range Interpretation Comments WBC (test code = 6690-2) 3.3 See_Comment L [A utomated message] The system [employer] generated this result transmitted ref erence range: 3.5 - 10 .5 K/L. The refe rence range was not u sed to interpret this result as normal/abnor mal. RBC (test code = 789-8) 4.83 See_Comment [Au tomated message] The system [employer] generated this result transmitted ref erence range: 3.93 - 5 .22 M/L. The refe rence range was not u sed to interpret this result as normal/abnor mal. MCHC (test code = 786-4) 31.7 See_Comment L [A utomated message] The system [employer] generated this result transmitted ref erence range: 32.2 - 3 5.5 GM/DL. The refe rence range was not u sed to interpret this result as normal/abnor mal. Hematocrit (test code = 42.6 % 34.1-44.9 4544-3) MCV (test code = 787-2) 88.0 fL 79.4-94.8 MCH (test code = 785-6) 28.0 pg 25.6-32.2 RDW (test code = 788-0) 13.5 % 11.7-14.4 Platelets (test code = 150 See_Comment [Aut omated message] 777-3) The system [employer] generated this result transmitted ref erence range: 150 - 45 0 K/CU MM. The referen ce range was not u sed to interpret this result as normal/abnor mal. MPV (test code = 10.9 fL 9.4-12.3 70015-3) nRBC (test code = 413) 0 See_Comment [Aut omated message] The system [employer] generated this result transmitted ref erence range: 0 - 0 /1 00 WBC. The refere nce range was not u sed to interpret this result as normal/abnor mal. % Neutros (test code = 56 % 429) % Lymphs (test code = 29 % 430) % Monos (test code = 13 % 431) % Eos (test code = 432) 1 % % Baso (test code = 437) 0 % # Neutros (test code = 1.84 See_Comment [Aut omated message] 670) The system [employer] generated this result transmitted ref erence range: 1.56 - 6 .13 K/L. The refe rence range was not u sed to interpret this result as normal/abnor mal. # Lymphs (test code = 0.96 See_Comment L [Auto mated message] 414) The system [employer] generated this result transmitted ref erence range: 1.18 - 3 .74 K/L. The refe rence range was not u sed to interpret this result as normal/abnor mal. # Monos (test code = 0.43 See_Comment H [Autom ated message] 415) The system [employer] generated this result transmitted ref erence range: 0.24 - 0 .36 K/L. The refe rence range was not u sed to interpret this result as normal/abnor mal. # Eos (test code = 416) 0.03 See_Comment L [Au tomated message] The system [employer] generated this result transmitted ref erence range: 0.04 - 0 .36 K/L. The refe rence range was not u sed to interpret this result as normal/abnor mal. # Baso (test code = 417) 0.01 See_Comment [A utomated message] The system [employer] generated this result transmitted ref erence range: 0.01 - 0 .08 K/L. The refe rence range was not u sed to interpret this result as normal/abnor mal. Immature 0 % 0-1 Granulocytes-Relative (test code = 2801) Lab Interpretation (test Abnormal code = 27164-1) [facility] W/PLT COUNT & AUTO [id number] 14:57:05 Test Item Value Reference Range Interpretation Comments WHITE BLOOD CELL COUNT (BEAKER) 3.3 K/ L 3.5-10.5 L (test code = 775) RED BLOOD CELL COUNT (BEAKER) 4.83 M/ L 3.93-5.22 (test code = 761) HEMOGLOBIN (BEAKER) (test code = 13.5 GM/DL 11.2-15.7 410) HEMATOCRIT (BEAKER) (test code = 42.6 % 34.1-44.9 411) MEAN CORPUSCULAR VOLUME (BEAKER) 88.0 fL 79.4-94.8 (test code = 753) MEAN CORPUSCULAR HEMOGLOBIN 28.0 pg 25.6-32.2 (BEAKER) (test code = 751) MEAN CORPUSCULAR HEMOGLOBIN CONC 31.7 GM/DL 32.2-35.5 L (BEAKER) (test code = 752) RED CELL DISTRIBUTION WIDTH 13.5 % 11.7-14.4 (BEAKER) (test code = 412) PLATELET COUNT (BEAKER) (test 150 K/CU MM 150-450 code = 756) MEAN PLATELET VOLUME (BEAKER) 10.9 fL 9.4-12.3 (test code = 754) NUCLEATED RED BLOOD CELLS 0 /100 WBC 0-0 (BEAKER) (test code = 413) NEUTROPHILS RELATIVE PERCENT 56 % (BEAKER) (test code = 429) LYMPHOCYTES RELATIVE PERCENT 29 % (BEAKER) (test code = 430) MONOCYTES RELATIVE PERCENT 13 % (BEAKER) (test code = 431) EOSINOPHILS RELATIVE PERCENT 1 % (BEAKER) (test code = 432) BASOPHILS RELATIVE PERCENT 0 % (BEAKER) (test code = 437) NEUTROPHILS ABSOLUTE COUNT 1.84 K/ L 1.56-6.13 (BEAKER) (test code = 670) LYMPHOCYTES ABSOLUTE COUNT 0.96 K/ L 1.18-3.74 L (BEAKER) (test code = 414) MONOCYTES ABSOLUTE COUNT (BEAKER) 0.43 K/ L 0.24-0.36 H (test code = 415) EOSINOPHILS ABSOLUTE COUNT 0.03 K/ L 0.04-0.36 L (BEAKER) (test code = 416) BASOPHILS ABSOLUTE COUNT (BEAKER) 0.01 K/ L 0.01-0.08 (test code = 417) IMMATURE GRANULOCYTES-RELATIVE 0 % 0-1 PERCENT (BEAKER) (test code = 2801) Urinalysis w/Microscopic + Reflex to [id number] 14:50:49 Test Item Value Reference Range Interpretation Comments Color, UA (test code Red = 5778-6) Clarity, UA (test Cloudy code = 5767-9) Specific [place], UA 1.017 1.001-1.035 (test code = 5811-5) pH, UA (test code = 6.5 5.0-8.0 5803-2) Protein, UA (test 100 mg/dL Negative A code = 59405-3) Glucose, UA (test Negative Negative code = 365) Ketones, UA (test Trace Negative A code = 1724-8) Bilirubin, UA (test Positive Negative A code = 04477-7) Blood, UA (test code Large Negative A = 10630-7) Nitrite, UA (test Negative Negative code = 5802-4) Leukocytes, UA (test Large Negative A code = 5799-2) Urobilinogen, UA 0.2 mg/dL 0.2-1.0 (test code = 82438-4) RBC, UA (test code = 6042 See_Comment [Autom ated 98613-5) message] The system which generated this result transmitted reference range : /HPF. The reference range was not used to interpret this result as normal/abnormal . WBC, UA (test code = 380 See_Comment [Autom ated 5821-4) message] The system which generated this result transmitted reference range : /HPF. The reference range was not used to interpret this result as normal/abnormal . Bacteria, UA (test None Seen code = 16923-2) Mucus (test code = Occasional 8247-9) Crystals, Urine (test None Seen code = 82221-9) Specimen Source (test code = 2795) OLGA (test code = OLGA) Lath Hand ID - [auto]Lath Hand ID - tech Lab Interpretation Abnormal (test code = 26237-4) [facility] [id number] 14:50:49 Test Item Value Reference Range Interpretation Comments COLOR (BEAKER) (test code = 470) Red CLARITY (BEAKER) (test code = 469) Cloudy SPECIFIC GRAVITY UA (BEAKER) (test 1.017 1.001-1.035 code = 468) PH UA (BEAKER) (test code = 467) 6.5 5.0-8.0 PROTEIN UA (BEAKER) (test code = 100 mg/dL Negative A 464) GLUCOSE UA (BEAKER) (test code = Negative Negative 365) KETONES UA (BEAKER) (test code = Trace Negative A 371) BILIRUBIN UA (BEAKER) (test code = Positive Negative A 462) BLOOD UA (BEAKER) (test code = Large Negative A 461) NITRITE UA (BEAKER) (test code = Negative Negative 465) LEUKOCYTE ESTERASE UA (BEAKER) Large Negative A (test code = 466) UROBILINOGEN UA (BEAKER) (test 0.2 mg/dL 0.2-1.0 code = 463) RBC UA (BEAKER) (test code = 519) 6042 /HPF WBC UA (BEAKER) (test code = 520) 380 /HPF BACTERIA (BEAKER) (test code = None Seen 517) MUCUS (BEAKER) (test code = 1574) Occasional CRYSTALS, URINE (BEAKER) (test None Seen code = 1521) SOURCE(BEAKER) (test code = 2795) Lath Hand ID - [auto]Lath Hand ID - tech[[facility]] PTH, INTACT (WITHOUT CALCIUM) 2019-03-06 14:00:01 Test Item Value Reference Range Interpretation Comments Parathyroid Hormone Intact (test 47.4 pg/ml 18.4-80.1 code = 2731-8) [facility]] [id number] 14:00:01 Test Item Value Reference Range Interpretation Comments Amylase Level (test code = 1798-8) 51 u/l 25-115 [facility]] FOLATE, [id number] 14:00:01 Test Item Value Reference Range Interpretation Comments Folate Level (test code = 2284-8) 9.7 ng/ml >=3.0 [facility]] LIPID [id number] 14:00:01 Test Item Value Reference Range Interpretation Comments LDL (test code = 83443-5) 66 mg/dl <=99 VLDL (test code = VLDL) 30 Chol (test code = 2093-3) 161 mg/dl <=199 Trig (test code = 2571-8) 148 mg/dl <=149 HDL Cholesterol (test code = 65 mg/dl >=61 2085-9) CHD Risk; Below Low Threshold (test 2.48 3.90-5.80 code = 50573-6) [facility]] IRON AND TOTAL IRON BINDING [id number] 14:00:01 Test Item Value Reference Range Interpretation Comments Iron (test code = 2498-4) 115 ug/dL 30-160 % [place] (test code = 2502-3) 30 % 12-57 TIBC (test code = 2500-7) 385 ug/dL 228-428 UIBC (test code = UIBC) 270 ug/dL 110-370 [facility]] [id number] 14:00:01 Test Item Value Reference Range Interpretation Comments Lipase Level (test code = 3040-3) 305 u/l 73-393 [facility]] TSH, 3RD [id number] 14:00:01 Test Item Value Reference Range Interpretation Comments TSH; Above High Threshold 4.360 {uIU/ml} 0.360-3.740 (test code = 54816-1) [facility]] VITAMIN [id number] 14:00:01 Test Item Value Reference Range Interpretation Comments Vitamin B12 Level (test code = 318 pg/ml 254-1320 2132-9) [facility]] HEMOGLOBIN [id number] 14:00:01 Test Item Value Reference Range Interpretation Comments Hemoglobin A1c; Above High Threshold 5.9 % <=5.6 (test code = 4548-4) [facility]] VITAMIN D, 25-HYDROXY, LC/[id number] 14:00:01 Test Item Value Reference Range Interpretation Comments Vitamin D, 25-OH, 18.5 ng/ml 30.0-100.0 Reference range is based Total (test code on recommen dations in the = Vitamin D, EndocrineSociet y Clinical 25-OH, Total) Practice Guide line (J Clin Endocrinol Vmhxt1256;96:19 11-1930) [facility][H] Vit [id number] 14:00:01 Test Item Value Reference Range Interpretation Comments Vitamin A 45.6 ug/dL 22.0-69.5 Reference inter vals for vitamin Level (test A determined fr om code = LabCorpinternal studies. Vitamin A Individuals wit h vitamin A less Level) than 20ug/dL ar e considered vitamin A defic ient and those withserum becky ntrations less than 10 ug/dL a re consideredsever alis deficient.This test was developed and i ts performance characteristics determined by [facility]. It has not been cleared orappro jack by the Food and Drug Administration. Performed At: [facility] [id number] [place], [place] [id number] ra Sarah UGATRE Ph:[phone] [facility][H] Vitamin E [id number] 14:00:01 Test Item Value Reference Range Interpretation Comments Alpha-Tocoph 8.2 mg/L 9.0-29.0 This test was d eveloped and its amber (test performance code = characteristics determined by [facility]oc[facility]. It has not been cleared amber) orapproved by [facility] Food and Drug Administration. Gamma-Tocoph 1.2 mg/L 0.5-4.9 This test was d eveloped and its amber (test performance code = characteristics determined by Gamma-Tocoph [facility]. It has not been cleared amber) orapproved by [facility] Food and Drug Administration. Reference intervals for a lpha and gamma-tocophero ldetermined from National Health and Nutrition ExaminationSurv ey, 8902-0805. Individuals wit h alpha-tocopherol levelsless than 5.0 mg/L are considered brayden min E deficient.Perfo rmed At: [employer] [address] [id number] Sanjai MD Ph:[phone] [facility]] VITAMIN B1, WHOLE [id number] 14:00:01 Test Item Value Reference Range Interpretation Comments Vitamin B1 113.8 66.5-200.0 This test was d eveloped and its Level (test nmol/L performance code = characteristics determined by Vitamin B1 [facility]. It has not been Level) cleared orappro jack by the Food and Drug Administration. Performed At: [employer] [address] [id number] ra Sarah UGARTE Ph:[phone] [facility] PhysiciansGI Esophagus barium swallow [id number] 09:59:00EXAM: Upper GI series w KUB DX, Barium swallow DXDATE: 02/13/2019 9:58 CDT.INDICATION: Nausea and reflux.COMPARISON: None available.TECHNIQUE: Upper GI was performed using double contrast technique orally.FLUOROSCOPY:Time: 0.4 min.Exposures: 0.FINDINGS:Preliminary radiograph: Posterior spinal fixation hardware projects over thelower lumbar spine. A moderate amount stool is incidentally noted.Swallowing: Normal. No penetration or aspiration was seen.Esophagus:Motility: Normal. There was normal passage of a barium-coated tablet beyond thegastroesophageal junction.Anatomy: No filling defects, mucosal irregularities, obstructions or extrinsiccompressions identified.Hiatal hernia: None.Gastroesophageal reflux: Unprovoked gastroesophageal reflux extended as farproximal as the level of the karen.Stomach:Normal.Duodenum: Normal.IMPRESSION:Unprovoked gastroesophageal reflux is moderate in extent.--Read by: Devon Vo MDDictated Date/time: 02/13/19 15:46Electronically Signed by: Devon Vo MD 02/13/1915:49FINAL REPORTUT Michelle Stomach UGI (barium) with KUB [id number] 09:58:00 EXAM: Upper GI series w KUB DX, Barium swallow DXDATE: 02/13/2019 9:58 CDT.INDICATION: Nausea and reflux.COMPARISON: None available.TECHNIQUE: Upper GI was performed using double contrast technique orally.FLUOROSCOPY:Time: 0.4 min.Exposures: 0.FINDINGS:Preliminary radiograph: Posterior spinal fixation duran rdware projects over thelower lumbar spine. A moderate amount stool is incidentally noted.Swallowing: Normal. No penetration or aspiration was seen.Esophagus:Motility: Normal. There was normal passage of a barium-coated tablet beyond thegastroesophageal junction.Anatomy: No filling defects, mucosal irregularities, obstructions or extrinsiccompressions identified.Hiatal hernia: None.Gastroesophageal reflux: Unprovoked gastroesophageal reflux extended as farproximal as the level of the karen.Stomach:Normal.Duodenum: Normal.IMPRESSION:Unprovoked gastroesophageal reflux is moderate in extent.--Read by: Devon Vo MDDictated Date/time: 02/13/19 15:46Electronically Signed by: Devon Vo MD 02/13/1915:49FINAL REPORTUT PhysiciansUS Liver [id number] 09:33:00LIVER ULTRASOUND INDICATION: - K76.0 Fatty (change of) liver, not elsewhere classifiedTECHNIQUE: Grayscale and limited doppler images of the liver were obtained andrepresentative images were submitted for interpretation.COMPARISON: noneFINDINGS:Liver: the liver measures 15 cm in length (normal: 13-17 cm). Echogenicity isincreased. No surface nodularity.Portal and hepatic veins are patent with normal directions of flow.Biliary: No gallstones, gallbladder wall thickening, or sonographic Ferguson'ssign. There is no biliary duct dilation. Mid common bile duct measures 4 mm indiameter.Pancreas: Prominent head and appears echogenic. No focal lesion. However,certain portions are obscured by overlying bowelgas and unable to beevaluated.Vascular: Visualized portions of the IVC are patent. No obvious aneurysmaldilatation of the aorta.IMPRESSION:Prominent pancreatic head which appears echogenic. Findings maybe due to fattyinfiltration or inflammation. Recommend correlation with lipase levels. Alsoconsider further evaluation with pancreatic protocol MR or CT.Hepatic echogenicity suggests fatty infiltration and/or chronic hepatocellulardisease.--Read by: Jane Do MDDictated Date/time: 02/13/19 09:59Electronically Signed by: Jane Do MD 02/13/1910:04FINAL REPORTUT Physicians
[2022-08-01 05:09] LABS: Absolute Lymphocytes (CBC) 1.7 K/uL (0.7-4.9); Hematocrit 38.2 % (36.0-45.0); Lymphocytes % 21.1 % (15.3-44.8); MCV 84.4 fL (80-100); MPV 7.9 fL (7.6-11.3); RBC Red Blood Cell Count 4.52 M/uL (3.86-4.86)
[2022-08-01] MEDS ORDERED: ONDANSETRON 4 MG/2 ML VIAL ONE (05:19)
[2022-08-01] MEDS ORDERED: KETOROLAC 30 MG/ML INJ ONE (05:19)
[2022-08-01] MEDS ORDERED: MORPHINE 4 MG/ML SYR ONE (05:25)
[2022-08-01 05:29] LABS: Albumin 3.6 g/dL (3.4-5.0); Bilirubin Total 1.1 mg/dL (0.2-1.0); Potassium 3.9 mmol/L (3.5-5.1); Protein, Total 8.1 g/dL (6.4-8.2)
[2022-08-01] MEDS ORDERED: NA CHLORIDE 0.9% 1,000 ML ONE (05:36)
[2022-08-01 05:51] LABS: Urine Blood 1+ (Negative); Urine Glucose Negative (Negative); Urine Protein Trace (Negative)
[2022-08-01 05:57] LABS: Urine Bacteria <20 /HPF (<20); Urine WBC Clump Moderate /HPF (None Seen)
--- NOTE | 2022-08-01 08:16 | EDPHYS ---
Physician Documentation [facility] Name: Loren Christianson Age: 62 yrs Sex: Female : 1960 Arrival Date: 08/01/2022 Time: 04:32 Bed 13 Private MD: ED Physician Jamin Sandoval HPI: 08/01 05:25 This 62 yrs old Female presents to ER via Ambulatory with complaints of Low ms3 Back Pain, Urinary Problem. 05:25 62-year-old female with past medical history of hypertension, hypothyroidism, ms3 rheumatoid arthritis, kidney stones presents for right-sided low back pain and difficulty with urination. Patient states her discomfort began yesterday afternoon. Patient states pain is a 10/10 and hurts. Patient states walking makes the pain worse. Patient denies alleviating factors. Patient denies nausea, vomiting, fevers, chills.. Historical: - Allergies: 04:51 No Known Allergies; ke1 - PMHx: 04:51 Arthritis; Hypertension; Hypothyroidism; ke1 - Immunization history:: Adult Immunizations Client reports receiving the 2nd dose of the Covid vaccine. - Social history:: Smoking status: Patient denies any tobacco usage or history of. ROS: 05:25 Constitutional: Negative for fever, and chills. Eyes: Negative for injury, pain, ms3 redness, and discharge, Neck: Negative for injury, pain, and swelling, Cardiovascular: Negative for chest pain, and palpitations. Respiratory: Negative for shortness of breath, cough, wheezing, and pleuritic chest pain, Abdomen/GI: Negative for abdominal pain, nausea, vomiting, diarrhea, and constipation. 05:25 Skin: Negative for injury, rash, and discoloration. 05:25 Back: Positive for flank pain, on the right. 05:25 All other systems are negative. Exam: 05:25 Constitutional: This is a well developed, well nourished patient who is awake, alert, ms3 and in no acute distress. Head/Face: Normocephalic, atraumatic. Neck: Trachea midline, no cervical lymphadenopathy. Supple, full range of motion without nuchal rigidity, or vertebral point tenderness. No Meningismus. Chest/axilla: Normal chest wall appearance and motion. Nontender with no deformity. Cardiovascular: Regular rate and rhythm with a normal S1 and S2. No gallops, murmurs, or rubs. Normal PMI, no JVD. No pulse deficits. Respiratory: Lungs have equal breath sounds bilaterally, clear to auscultation and percussion. No rales, rhonchi or wheezes noted. No increased work of breathing, no retractions or nasal flaring. Abdomen/GI: Soft, non-tender, with normal bowel sounds. No distension or tympany. No guarding or rebound. No evidence of tenderness throughout. 05:25 Skin: Warm, dry with normal turgor. Normal color with no rashes, no lesions, and no evidence of cellulitis. MS/ Extremity: Pulses equal, no cyanosis. Neurovascular intact. Full, normal range of motion. Neuro: Awake and alert, GCS 15, oriented to person, place, time, and situation. Cranial nerves II-XII grossly intact. Motor strength 5/5 in all extremities. Sensory grossly intact. Cerebellar exam normal. Normal gait. Psych: Awake, alert, with orientation to person, place and time. Behavior, mood, and affect are within normal limits. 05:25 Back: CVA tenderness, that is moderate, is noted on the right, vertebral tenderness, is not appreciated, muscle spasm, is not present. Vital Signs: 04:47 BP 154 / 84; Pulse 68; Resp 19; Temp 98.4; Pulse Ox 98% on R/A; Weight 77.11 kg; Height ke1 5 ft. 8 in. (172.72 cm); Pain 10/10; 05:35 Pain 3/10; ke1 08:24 BP 135 / 78; Pulse 70; Resp 16; Temp 98.8; Pulse Ox 99% ; Pain 2/10; ko1 04:47 Body Mass Index 25.85 (77.11 kg, 172.72 cm) ke1 MDM: 04:45 Patient medically screened. ms3 08:20 Data reviewed: vital signs, nurses notes, lab test result(s), radiologic studies, and ms3 as a result, I will discharge patient. Counseling: I had a detailed discussion with the patient and/or guardian regarding: the historical points, exam findings, and any diagnostic results supporting the discharge/admit diagnosis, lab results, radiology results, the need for outpatient follow up, to return to the emergency department if symptoms worsen or persist or if there are any questions or concerns that arise at home. ED course: Discussed labs and CT scan with patient and her . Discussed treatment plan with them. They understand and agree with plan. Patient to follow-up Dr. Reyes in 2 to 3 days. Return precautions discussed include worsening symptoms, or any other concerns. On reevaluation patient is improved, alert and oriented x4, in no apparent distress, nontoxic, ambulatory in the emergency department.. 08/01 04:46 Order name: CBC with Diff; Complete Time: 05:22 ms3 08/01 04:46 Order name: CMP; Complete Time: 07:41 ms3 08/01 04:46 Order name: Lipase; Complete Time: 07:41 ms3 08/01 04:46 Order name: Urine Microscopic Only; Complete Time: 07:41 ms3 08/01 05:52 Order name: Urine Dipstick-Ancillary; Complete Time: 07:41 EDMS 08/01 06:04 Order name: Urine Culture EDMS 08/01 04:46 Order name: CT Abd/Pelvis - Without Contrast ms3 08/01 04:46 Order name: IV Saline Lock; Complete Time: 05:25 ms3 08/01 04:46 Order name: Labs collected and sent; Complete Time: 05:25 ms3 08/01 04:51 Order name: Abdomen EDMS 08/01 04:46 Order name: Urine Dipstick-Ancillary (obtain specimen); Complete Time: 05:52 ms3 08/01 05:53 Order name: Straight Cath - Urine; Complete Time: 05:53 ke1 Administered Medications: 05:15 Drug: Zofran (Ondansetron) 4 mg Route: IVP; Site: left antecubital; ke1 05:45 Follow up: Response: Nausea is decreased ke1 05:20 Drug: Ketorolac 10 mg Route: IVP; Site: left antecubital; ke1 05:40 Follow up: Response: Pain is decreased ke1 05:25 Drug: NS 0.9% 1000 ml Route: IV; Rate: 1 bolus; Site: left antecubital; ke1 05:25 Drug: morphine 4 mg Route: IVP; Infused Over: 4 mins; Site: left antecubital; ke1 05:35 Follow up: Pain 3/10 Adult; Response: Pain is decreased ke1 Disposition Summary: 08/01/22 08:16 Discharge Ordered Location: Home ms3 Condition: Stable ms3 Diagnosis - Unspecified hydronephrosis ms3 - Hydronephrosis with renal and ureteral calculous obstruction ms3 - Flank pain ms3 Followup: ms3 - With: Rowdy Reyes MD - When: 2 - 3 days - Reason: Recheck today's complaints Discharge Instructions: - Discharge Summary Sheet ms3 - Kidney Stones ms3 - Hydronephrosis ms3 Forms: - Medication Reconciliation Form ms3 - Thank You Letter ms3 - Antibiotic Education ms3 - Prescription Opioid Use ms3 Prescriptions: - Flomax 0.4 mg Oral capsule - take 1 capsule by ORAL route once daily 1/2 hour following the same meal each ms3 day; 15 capsule; Refills: 0, Product Selection Permitted - Fluconazole 150 mg Oral Tablet - take 1 tablet by ORAL route once daily; 1 tablet; Refills: 0, Product Selection ms3 Permitted - cefpodoxime 200 mg Oral Tablet - take 1 tablet by ORAL route every 12 hours with food; 20 tablet; Refills: 0, ms3 Product Selection Permitted - Tylenol-Codeine #3 300 mg-30 mg Oral - take 1 tablet by ORAL route every 4-6 hours; 18 tablet; Refills: 0, Product ms3 Selection Permitted Signatures: Dispatcher [employer] Jamin Corbin DO DO ms3 Leonardo Simmons, RN RN ke1
--- NOTE | 2022-08-01 08:16 | ER ---
Nurse's Notes [facility] Name: Loren Christianson Age: 62 yrs Sex: Female : 1960 Arrival Date: 08/01/2022 Time: 04:32 Bed 13 Private MD: Diagnosis: Unspecified hydronephrosis;Hydronephrosis with renal and ureteral calculous obstruction;Flank pain Presentation: 08/01 04:47 Chief complaint: Patient states: R flank pain since yesterday getting worse today. ke1 Coronavirus screen: Vaccine status: Patient reports receiving the 2nd dose of the covid vaccine. Ebola Screen: No symptoms or risks identified at this time. Initial Sepsis Screen: Does the patient meet any 2 criteria? No. Patient's initial sepsis screen is negative. Does the patient have a suspected source of infection? No. Patient's initial sepsis screen is negative. Risk Assessment: Do you want to hurt yourself or someone else? Patient reports no desire to harm self or others. Onset of symptoms was July 31, 2022. 04:47 Method Of Arrival: Ambulatory ke1 04:47 Acuity: GLORIA 3 ke1 Triage Assessment: 04:52 General: Appears uncomfortable, Behavior is crying. Pain: Complains of pain in R flank. ke1 Historical: - Allergies: 04:51 No Known Allergies; ke1 - PMHx: 04:51 Arthritis; Hypertension; Hypothyroidism; ke1 - Immunization history:: Adult Immunizations Client reports receiving the 2nd dose of the Covid vaccine. - Social history:: Smoking status: Patient denies any tobacco usage or history of. Screenin:53 Abuse screen: Denies threats or abuse. Nutritional screening: No deficits noted. ke1 Tuberculosis screening: No symptoms or risk factors identified. Fall Risk No fall in past 12 months (0 pts). No secondary diagnosis (0 pts). No IV (0 pts). Ambulatory Aid- None/Bed Rest/Nurse Assist (0 pts). Gait- Normal/Bed Rest/Wheelchair (0 pts) Mental Status- Oriented to own ability (0 pts). Total Lobo Fall Scale indicates. Assessment: 05:52 Reassessment: Patient states feeling better. Patient states symptoms have improved. ke1 08:07 Reassessment: Patient is alert, oriented x 3, equal unlabored respirations, skin ko1 warm/dry/pink. Patient states feeling better. Vital Signs: 04:47 BP 154 / 84; Pulse 68; Resp 19; Temp 98.4; Pulse Ox 98% on R/A; Weight 77.11 kg; Height ke1 5 ft. 8 in. (172.72 cm); Pain 10/10; 05:35 Pain 3/10; ke1 08:24 BP 135 / 78; Pulse 70; Resp 16; Temp 98.8; Pulse Ox 99% ; Pain 2/10; ko1 04:47 Body Mass Index 25.85 (77.11 kg, 172.72 cm) ke1 ED Course: 04:32 Patient arrived in ED. ja2 04:33 Jamin Sandoval DO is Attending Physician. ms3 04:47 Leonardo Simmons, RN is Primary Nurse. ke1 04:51 Triage completed. ke1 04:53 Arm band placed on right wrist. ke1 04:53 Bed in low position. Call light in reach. ke1 05:15 Inserted saline lock: 20 gauge in left antecubital area, using aseptic technique. ke1 05:27 Abdomen In Process Unspecified. EDMS 05:54 Straight cath inserted, using sterile technique, 16 Fr. Specimen obtained. Returned 150 ke1 ml. Patient tolerated well. 08:15 Rowdy Reyes MD is Referral Physician. ms3 08:19 Primary Nurse role handed off by Leonardo Simmons, LINCOLN eb 08:24 Natalya Rodriguez, LINCOLN is Primary Nurse. ko1 08:24 No provider procedures requiring assistance completed. ko1 08:24 IV discontinued, intact, bleeding controlled, No redness/swelling at site. Pressure ko1 dressing applied. Administered Medications: 05:15 Drug: Zofran (Ondansetron) 4 mg Route: IVP; Site: left antecubital; ke1 05:45 Follow up: Response: Nausea is decreased ke1 05:20 Drug: Ketorolac 10 mg Route: IVP; Site: left antecubital; ke1 05:40 Follow up: Response: Pain is decreased ke1 05:25 Drug: NS 0.9% 1000 ml Route: IV; Rate: 1 bolus; Site: left antecubital; ke1 05:25 Drug: morphine 4 mg Route: IVP; Infused Over: 4 mins; Site: left antecubital; ke1 05:35 Follow up: Pain 01/15 Adult; Response: Pain is decreased ke1 Medication: 08:24 VIS not applicable for this client. ko1 Outcome: 08:16 Discharge ordered by . ms3 08:24 Discharged to home with family. ko1 08:24 Condition: improved 08:24 Discharge instructions given to patient, family, Instructed on discharge instructions, follow up and referral plans. medication usage, Demonstrated understanding of instructions, follow-up care, medications, Prescriptions given X 4. 08:35 Patient left the ED. ko1 Signatures: Dispatcher [employer] EDMS Loren Batista Marcus, DO DO ms3 Cierra Maria2 Leonardo Simmons, RN RN ke1 Natalya Rodriguez RN RN ko1
[2022-08-02 19:13] VITALS: BP 154/84; TEMP 98.4; O2SAT 98
--- NOTE | 2022-08-03 12:41 | RAD REPORT ---
EXAM DESCRIPTION: CT Abdomen and Pelvis Without Intravenous Contrast CLINICAL HISTORY: The patient is 62 years old and is Female; right flank pain TECHNIQUE: Axial computed tomography images of the abdomen and pelvis without intravenous contrast. Sagittal and coronal reformatted images were created and reviewed. This CT exam was performed usi ng one or more of the following dose reduction techniques: automated exposure control, adjustment o f the mA and/or kV according to patient size, and/or use of iterative reconstruction technique. COMPARISON: CT abdomen and pelvis October 23, 2021 FINDINGS: Lung bases: Unremarkable. No mass. No consolidation. Mediastinum: Small hiatal hernia. ABDOMEN: Liver: Diffuse hepatic steatosis. Gallbladder and bile ducts: Unremarkable. No calcified stones. No ductal dilation. Pancreas: Unremarkable. No ductal dilation. Spleen: Unremarkable. No splenomegaly. Adrenals: Unremarkable. No mass. Kidneys and ureters: 5 mm stone in the lower right ureter near the right UVJ. Moderate right hydr oureteronephrosis. Mild right perinephric/periureteral stranding. Nonobstructing calcification in the left kidney. Stomach and bowel: Postsurgical changes in the stomach. Diverticulosis involving the sigmoid and left colon. No obstruction. No mucosal thickening. PELVIS: Appendix: No findings to suggest acute appendicitis. Bladder: Perivesicular stranding. Reproductive: Unremarkable as visualized. ABDOMEN and PELVIS: Intraperitoneal space: Unremarkable. No free air. No significant fluid collection. Bones/joints: Posterior ayush and screw fixation at L4-5. No acute fracture. No dislocation. Soft tissues: Unremarkable. Vasculature: Unremarkable. No abdominal aortic aneurysm. Lymph nodes: Unremarkable. No enlarged lymph nodes. IMPRESSION: 1. 5 mm stone in the lower right ureter near the right UVJ. Moderate right hydroureter onephrosis. Mild right perinephric/periureteral stranding. 2. Perivesicular stranding. Correlate with any concern for UTI. Electronically signed by: Inocente Fung MD 08/01/2022 6:15 AM CDT Due to temporary technical issues with the PACS/Fluency reporting system, reports are being signed by the in house radiologists without review as a courtesy to insure prompt reporting. The interpreting radiologist is fully responsible for the content of the report.
== END 2022-08-01 08:35 | disposition home or self-care (01) ==
LOC: ER 04:28
DX: N13.2 Hydronephrosis with renal and ureteral calculous obstruction (principal)
CPT/HCPCS: 87088; 85025; 87086; 36415; 87077; 87186; 83690; 80053; 74176; 51702; 96375; 96374; 99284; J7030; J2405; 81003; 81015